=== PATIENT | male | born 1950 | race Caucasian/White ===

== ENCOUNTER 2020-09-23 21:42 | Inpatient (IN) | payer MEDICARE, MEDICAID ==
[~2020-09-23] VITALS: Ht 154.9 cm; Wt 68.0 kg
--- NOTE | 2020-09-23 21:54 | Emergency Room Report ---
History of Present Illness General Chief Complaint: Syncope Source: Patient Present Illness HPI This is a 70-year-old male with no known medical problem. He presents with generalized weakness and near syncope. He said he has been feeling well for last few days. He has chills and decreased appetite. His only been drinking water at home. Is been laying in bed. He went to [employer] to get something to eat today. He was in line when he felt lightheaded and felt occasional pass out. Bystander laid him down to the ground. 911 was called. Paramedics said that his initial blood pressure was systolic in the 80s sitting up. When the laying down is 130 systolic. Patient denies any chest pain. No focal deficit. Denies any fever. He does have chronic edema to his lower extr emity. He denies any cough or congestion. Denies any nausea vomiting or diarrhea. Allergies: Coded Allergies: No Known Allergies (Unverified , 09/23/20) COVID-19 Screening Contact w/high risk pt: No Experienced COVID-19 symptoms?: Yes COVID-19 Testing performed ENERGY ADVISOR: No Patient History Past Medical History: see triage record, old chart reviewed Past Surgical History: none Pertinent Family History: none Social History: Denies: smoking Immunizations: other Reviewed Nursing Documentation: PMH: Agreed; PSxH: Agreed Nursing Documentation-PMH Past Medical History: No Stated History Review of Systems Constitutional: Reports: chills, malaise, weakness Eye: Denies: eye pain, blurred vision ENT: Denies: ear pain, nose congestion, throat swelling Respiratory: Denies: cough, shortness of breath Cardiovascular: Denies: chest pain, palpitations Gastrointestinal: Denies: abdominal pain, diarrhea, nausea, vomiting Musculoskeletal: Denies: back pain, joint pain Skin: Denies: rash Neurological: Denies: headache, numbness Endocrine: Denies: increased thirst, increased urine Hematologic/Lymphatic: Denies: easy bruising All Other Systems: negative except mentioned in HPI Physical Exam Vital Signs Date Time Temp Pulse Resp B/P (MAP) Pulse Ox O2 Delivery O2 Flow Rate FiO2 09/23/20 21:45 98.1 90 18 130/90 (103) 100 Room Air Vitals normal Sp02 EP Interpretation: reviewed, normal General Appearance: well appearing, no apparent distress, alert Head: normocephalic, atraumatic Eyes: bilateral eye PERRL, bilateral eye EOMI ENT: hearing grossly normal, normal pharynx Neck: full range of motion, supple, no meningismus Respiratory: chest non-tender, lungs clear, normal breath sounds Cardiovascular #1: regular rate, rhythm, no murmur Gastrointestinal: normal bowel sounds, non tender, no mass, no organomegaly, no bruit, non-distended Musculoskeletal: back normal, normal range of motion, gait/station normal, other - Lower extremities with 2+ edema. He also has erythema from skin tear. Left leg is warmer than the right. Also with erythema from the mid tib-fib area to the ankle. Psychiatric: mood/affect normal Medical Decision Making Diagnostic Impression: Primary Impression: Near syncope Additional Impressions: Generalized weakness Cellulitis Qualified Codes: L03.115 - Cellulitis of right lower limb Dehydration ER Course Patient presents with generalized weakness and near syncope. He initially was transiently hypotensive. Has been fine here. He felt better after IV fluid. Laboratory data is unremarkable. EKG is unremarkable. The lower extremity appear to have some mild cellulitis. Antibiotics given. Covid test sent. Will admit patient for further work-up and monitoring. I discussed the case with Dr. Ochoa. EKG Diagnostic Results Troponin ordered: Yes Rate: normal Rhythm: NSR ST Segments: no acute changes Rhythm Strip Diag. Results EP Interpretation: yes Rate: 95 Rhythm: NSR, no PVC's, no ectopy Chest X-Ray Diagnostic Results Chest X-Ray Diagnostic Results : Chest X-Ray Ordered: Yes # of Views/Limited/Complete: 1 View Indication: Chest Pain EP Interpretation: Yes Interpretation: no consolidation, no effusion, no pneumothorax, no acute cardiopulmonary disease Impression: No acute disease Electronically Signed by: Constantine Roman MD Last Vital Signs Date Time Temp Pulse Resp B/P (MAP) Pulse Ox O2 Delivery O2 Flow Rate FiO2 09/23/20 21:45 98.1 90 18 130/90 (103) 100 Room Air Status: improved Disposition: ADMITTED INPATIENT Condition: Serious Scripts No Active Prescriptions or Reported Meds Constantine Roman MD Sep 23, 2020 21:54
[2020-09-23] MEDS ORDERED: cefTRIAXone 1 GM in NS 55 ML IVPB ONE (22:00)
[2020-09-23] MEDS ORDERED: Acetaminophen 500mg (ES) tab ORAL ONE (22:00)
--- NOTE | 2020-09-23 22:00 | NUR ---
ED Nurse Note: Pt brought in by EMS after near syncopal episode at grocery store. Pt reports he has been feeling weak and unwell x1 week. Pt c/o left hand pain, reports cough is chronic. Pt AAO x4. IV started, blood and swabs sent to lab, blankets provided.
[2020-09-23 22:20] VITALS: BP 162/91
[2020-09-23 22:24] LABS: BASOPHILS % (AUTO) 1.1 % (0.0-2.0); EOSINOPHILS % (AUTO) 2.4 % (0.0-3.0); HEMOGLOBIN 11.8 G/DL (14.2-18.0); LYMPHOCYTES % (AUTO) 9.5 % (20.0-45.0); MEAN CORPUSCULAR VOLUME 84 FL (80-99); MONOCYTES % (AUTO) 6.7 % (1.0-10.0); NEUTROPHILS % (AUTO) 80.3 % (45.0-75.0); PLATELET COUNT 331 K/UL (150-450); RED BLOOD COUNT 4.66 M/UL (4.70-6.10); RED CELL DISTRIBUTION WIDTH 13.9 % (11.6-14.8); WHITE BLOOD COUNT 11.6 K/UL (4.8-10.8)
[2020-09-23 22:33] LABS: ANION GAP 11 mmol/L (5-15); BLOOD UREA NITROGEN 11 mg/dL (7-18); CALCIUM 8.9 MG/DL (8.5-10.1); CARBON DIOXIDE 26 MMOL/L (21-32); CHLORIDE 105 MMOL/L (98-107); CREATININE 0.9 MG/DL (0.55-1.30); POTASSIUM 3.8 MMOL/L (3.5-5.1); SODIUM 142 MMOL/L (136-145)
[2020-09-23 22:45] LABS: ALANINE AMINOTRANSFERASE 21 U/L (12-78); ALBUMIN 3.7 G/DL (3.4-5.0); ALBUMIN/GLOBULIN RATIO 0.9 (1.0-2.7); ALKALINE PHOSPHATASE 100 U/L (46-116); ASPARTATE AMINO TRANSFERASE 27 U/L (15-37); BILIRUBIN,TOTAL 0.5 MG/DL (0.2-1.0); CKMB 7.4 NG/ML (0.0-3.6); CREATINE KINASE 375 U/L (26-308)
[2020-09-23 23:07] VITALS: BP 179/91
--- NOTE | 2020-09-23 23:08 | NUR ---
ED Nurse Note: Pt is sleeping, no new needs identified. Urine sent to lab.
[2020-09-23 23:10] LABS: APPEARANCE,URINE CLEAR; BILIRUBIN, URINE NEGATIVE (NEGATIVE); COLOR,URINE PALE YELLOW; GLUCOSE, URINE (UA) NEGATIVE (NEGATIVE); KETONES,URINE 3+ (NEGATIVE); LEUKOCYTE ESTERASE ,URINE NEGATIVE (NEGATIVE); NITRITE,URINE NEGATIVE (NEGATIVE); PH,URINE 7 (4.5-8.0); PROTEIN,URINE NEGATIVE (NEGATIVE); UROBILINOGEN,URINE NORMAL MG/DL (0.0-1.0)
[2020-09-24] VITALS (8 sets, daily range): BP systolic 130–167; BP diastolic 72–90
--- NOTE | 2020-09-24 00:19 | NUR ---
ED Nurse Note: Pt is resting. No new needs identified at this time.
--- NOTE | 2020-09-24 00:30 | NUR ---
NURSE NOTES: Receive a report from GIFTY Oglesby from ED.
--- NOTE | 2020-09-24 00:53 | NUR ---
TRANSFER TO FLOOR: Patient transferred to [facility] as ordered, per Dr. Roman. Report given to GIFTY Napier. Belongings sent with pt to floor. Belongings inventory filled out and signed.
--- NOTE | 2020-09-24 00:55 | NUR ---
NURSE NOTES: Pt admitted from ED via gurney accompanied by RN. Awake and alert. No acute distress noted. Still noted mild dizziness. No respiratory distress noted. Skin intact except bilateral L/E redness and swelling and left hand as well. Pt says redness and swelling on L/E have been two years. Denies pain. Pt has been walking until recent symptoms of dizziness. Kept elevated with pillows. Given unit orientation. Provide fall precautions. Done belongings list. Had 4 pocket knives and explain to pt to take away in the room for the safety. CA made aware. Kept in the nuclear equipment design engineer the nursing station. IV H/L is right FA 20G intact. Call light within reach. Will continue to monitor.
--- NOTE | 2020-09-24 01:45 | NUR ---
NURSE NOTES: Left a message to Dr. Ochoa for admission orders.
--- NOTE | 2020-09-24 02:30 | NUR ---
NURSE NOTES: Left a follow-up message to Dr. Ochoa for admission orders.
--- NOTE | 2020-09-24 05:40 | NUR ---
NURSE NOTES: Receive admission orders from Dr. Ochoa. Read back orders. Order noted and carried out.
[2020-09-24] MEDS ORDERED: Zolpidem 5mg tab ORAL PRN (05:45)
[2020-09-24] MEDS ORDERED: HYDROcodone/Acetamin 5/325 tab ORAL PRN (05:45)
[2020-09-24] MEDS: D5 1/2NS w/KCl 20mEq 1,000 ML IV SCH ×2 (06:30→20:20)
--- NOTE | 2020-09-24 06:30 | NUR ---
NURSE NOTES: Update pt for today's plans.
--- NOTE | 2020-09-24 06:47 | NUR ---
NURSE HAND-OFF REPORT: Important Events on Shift: new admission, high BP, SR-ST, L/E bilateral swelling and redness, left hand redness Patient Status: [stable] Diet: [cardiac] Pending Orders: [Xray-left hand, Venous dulpex, 2D-echo] Pending Results/Labs:[cbc, troponin] Pending MD notification:[] Latest Vital Signs: Temperature 98.9 , Pulse 98 , B/P 154 /90 , Respiratory Rate 18 , O2 SAT 97 , Room Air, O2 Flow Rate . Vital Sign Comment: [] EKG Rhythm: Sinus Rhythm Rhythm change?: N MD Notified?: - MD Response: Latest Avila Fall Score: 30 Fall Risk: Medium Risk Safety Measures: Call light Within Reach, Bed Alarm , Side Rails Side Rails x2, Bed position Low and Locked. Fall Precautions: Patient Fall Education
--- NOTE | 2020-09-24 07:30 | NUR ---
NURSE NOTES: Given report to GIFTY Mathew.
[2020-09-24 07:31] LABS: BASOPHILS % (AUTO) 0.9 % (0.0-2.0); EOSINOPHILS % (AUTO) 1.2 % (0.0-3.0); HEMATOCRIT 37.3 % (42.0-52.0); HEMOGLOBIN 11.6 G/DL (14.2-18.0); LYMPHOCYTES % (AUTO) 11.3 % (20.0-45.0); MEAN CORPUSCULAR VOLUME 81 FL (80-99); MONOCYTES % (AUTO) 10.7 % (1.0-10.0); NEUTROPHILS % (AUTO) 75.8 % (45.0-75.0); PLATELET COUNT 328 K/UL (150-450); RED BLOOD COUNT 4.62 M/UL (4.70-6.10); RED CELL DISTRIBUTION WIDTH 13.8 % (11.6-14.8); WHITE BLOOD COUNT 9.1 K/UL (4.8-10.8)
--- NOTE | 2020-09-24 07:35 | NUR ---
NURSE NOTES: Patient received from o RN. Patient awake alert and oriented x 4. No c/o pain, no s/s of repiratory distress, breathing even and unlabored. Saturating WNL on room gutierrez. IV site patent intact, no redness, no erythema noted. Bed in lowest position and locked. Call light and bedside table within reach.
--- NOTE | 2020-09-24 08:06 | NUR ---
CASE MANAGEMENT:REVIEW 70 YR OLD MALE BIBA FROM STORE SI: NEAR SYNCOPE. LLE CELLULITIS. DEHYDRATION 98.1 110 18 130/90 100% ON RA WBC+11.6 TCK+375 D-DIMER+0.90 IS: 1L NS BOLUS IV ROCEPHIN TYLENOL CHEST XRAY NOVEL COVID BLOOD CX : TO TELEMETRY UNIT DCP: FROM HOME
--- NOTE | 2020-09-24 08:08 | Consultation ---
History of Present Illness General Date patient seen: Sep 24, 2020 Time patient seen: 12:59 Chief Complaint: Syncope Referring physician: Dr. Ochoa Reason for Consultation: R/o infection Present Illness HPI 70yo M w/ no known PMH who p/w near syncope while at the supermarket. ID c/s to eval for infection. 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 Went to the store for something to eat, felt lightheaded in line and felt like he was going to pass out. Bystanders layed him on the ground and called 911. Per EMS, BP was initially in 80s sitting up and 130s laying down. Pt is very poor historian, denies any recent illness. Denies any fevers but does endorse prior chills. No CP, abd pain, dysuria, rashes. Does have mild cough he says, no SOB. Main complaint is L hand swelling and severe pain w/ any movement, doesn't know how this happened. Denies any allergies to abx Allergies: Coded Allergies: No Known Allergies (Unverified , 09/23/20) Medication History No Active Prescriptions or Reported Meds Patient History Healthcare decision maker Resuscitation status Advanced Directive on File Review of Systems ROS Narrative 10-point ROS neg except as noted in HPI Physical Exam Physical Exam Narrative Gen: NAD HEENT: NCAT Pulm: BL chest rise on RA Abd: Soft, NTND Ext: No c/c. L hand w/ diffuse swelling, mild erythema, no increased warmth; severe pain w/ any movement of R hand Skin: No visible rashes Neuro: Awake, interactive Last 24 Hour Vital Signs Date Time Temp Pulse Resp B/P (MAP) Pulse Ox O2 Delivery O2 Flow Rate FiO2 09/24/20 07:43 98.8 97 20 150/89 (109) 96 09/24/20 06:00 100 103 112 09/24/20 04:30 98.9 98 18 154/90 (111) 97 09/24/20 04:00 69 09/24/20 01:00 99.0 92 18 147/82 (103) 97 09/24/20 01:00 Room Air 09/24/20 00:42 98.6 95 14 160/83 100 Room Air 09/24/20 00:42 98.6 95 14 160/83 100 09/24/20 00:18 98.6 77 14 167/76 97 Room Air 09/23/20 23:07 98.6 110 20 179/91 98 Room Air 09/23/20 23:06 98.6 09/23/20 22:20 99.1 94 18 162/91 100 Room Air 09/23/20 21:45 98.1 90 18 130/90 (103) 100 Room Air Intake and Output 09/23/20 09/24/20 19:00 07:00 Intake Total 1150 ml Output Total 1350 ml Balance -200 ml Intake Oral 100 ml IV Total 1050 ml Output Urine Total 1350 ml # Voids 4 Laboratory Tests Test 09/23/20 21:56 09/23/20 23:05 09/24/20 06:35 White Blood Count 11.6 K/UL (4.8-10.8) H 9.1 K/UL (4.8-10.8) Red Blood Count 4.66 M/UL (4.70-6.10) L 4.62 M/UL (4.70-6.10) L Hemoglobin 11.8 G/DL (14.2-18.0) L 11.6 G/DL (14.2-18.0) L Hematocrit 39.0 % (42.0-52.0) L 37.3 % (42.0-52.0) L Mean Corpuscular Volume 84 FL (80-99) 81 FL (80-99) Mean Corpuscular Hemoglobin 25.2 PG (27.0-31.0) L 25.2 PG (27.0-31.0) L Mean Corpuscular Hemoglobin Concent 30.2 G/DL (32.0-36.0) L 31.2 G/DL (32.0-36.0) L Red Cell Distribution Width 13.9 % (11.6-14.8) 13.8 % (11.6-14.8) Platelet Count 331 K/UL (150-450) 328 K/UL (150-450) Mean Platelet Volume 9.2 FL (6.5-10.1) 9.8 FL (6.5-10.1) Neutrophils (%) (Auto) 80.3 % (45.0-75.0) H 75.8 % (45.0-75.0) H Lymphocytes (%) (Auto) 9.5 % (20.0-45.0) L 11.3 % (20.0-45.0) L Monocytes (%) (Auto) 6.7 % (1.0-10.0) 10.7 % (1.0-10.0) H Eosinophils (%) (Auto) 2.4 % (0.0-3.0) 1.2 % (0.0-3.0) Basophils (%) (Auto) 1.1 % (0.0-2.0) 0.9 % (0.0-2.0) Prothrombin Time 11.0 SEC (9.30-11.50) Prothromb Time International Ratio 1.0 (0.9-1.1) Activated Partial Thromboplast Time 26 SEC (23-33) D-Dimer 0.90 mg/L FEU (0.00-0.49) H Sodium Level 142 MMOL/L (136-145) Potassium Level 3.8 MMOL/L (3.5-5.1) Chloride Level 105 MMOL/L (98-107) Carbon Dioxide Level 26 MMOL/L (21-32) Anion Gap 11 mmol/L (5-15) Blood Urea Nitrogen 11 mg/dL (7-18) Creatinine 0.9 MG/DL (0.55-1.30) Estimat Glomerular Filtration Rate > 60 mL/min (>60) Glucose Level 104 MG/DL (74-106) Lactic Acid Level 1.50 mmol/L (0.4-2.0) Calcium Level 8.9 MG/DL (8.5-10.1) Total Bilirubin 0.5 MG/DL (0.2-1.0) Aspartate Amino Transf (AST/SGOT) 27 U/L (15-37) Alanine Aminotransferase (ALT/SGPT) 21 U/L (12-78) Alkaline Phosphatase 100 U/L (46-116) Total Creatine Kinase 375 U/L (26-308) H Creatine Kinase MB 7.4 NG/ML (0.0-3.6) H Creatine Kinase MB Relative Index 1.9 Troponin I 0.000 ng/mL (0.000-0.056) 0.007 ng/mL (0.000-0.056) C-Reactive Protein, Quantitative 0.9 mg/dL (0.00-0.90) Pro-B-Type Natriuretic Peptide 196 pg/mL (0-125) H Total Protein 7.6 G/DL (6.4-8.2) Albumin 3.7 G/DL (3.4-5.0) Globulin 3.9 g/dL Albumin/Globulin Ratio 0.9 (1.0-2.7) L Urine Color Pale yellow Urine Appearance Clear Urine pH 7 (4.5-8.0) Urine Specific [place] 1.010 (1.005-1.035) Urine Protein Negative (NEGATIVE) Urine Glucose (UA) Negative (NEGATIVE) Urine Ketones 3+ (NEGATIVE) H Urine Blood Negative (NEGATIVE) Urine Nitrite Negative (NEGATIVE) Urine Bilirubin Negative (NEGATIVE) Urine Urobilinogen Normal MG/DL (0.0-1.0) Urine Leukocyte Esterase Negative (NEGATIVE) Microbiology Date/Time Source Procedure Growth Status 09/23/20 22:15 Nasal Nares - Final Complete 09/23/20 22:15 Nasal Nares - Final Complete Height (Feet): 5 Height (Inches): 1.00 Weight (Pounds): 150 Medications Current Medications Medications (Trade) Dose Ordered Sig/Anthony Route PRN Reason Start Time Stop Time Status Last Admin Dose Admin Acetaminophen (Tylenol) 650 mg Q6H PRN ORAL FEVER 09/24/20 05:45 10/24/20 05:44 Acetaminophen (Tylenol) 650 mg Q6H PRN ORAL Mild Pain (Pain Scale 1-3) 09/24/20 05:45 10/24/20 05:44 Acetaminophen/ Hydrocodone Bitart ([place] 5/325) 1 tab Q6H PRN ORAL moderate to severer pain 09/24/20 05:45 10/01/20 05:44 Ceftriaxone Sodium 1 gm/ Dextrose 55 ml @ 110 mls/hr Q24H IVPB 09/24/20 22:00 10/01/20 21:59 Dextrose/ Electrolytes 1,000 ml @ 75 mls/hr [id number] IV 09/24/20 07:00 10/24/20 06:59 09/24/20 06:30 Heparin Sodium (Porcine) (Heparin 5000 units/ml) 5,000 units EVERY 12 HOURS SUBQ 09/24/20 09:00 11/08/20 08:59 Ondansetron HCl (Zofran) 4 mg Q4H PRN IVP Nausea & Vomiting 09/24/20 05:45 10/24/20 05:44 Vancomycin HCl 250 ml @ 166.667 mls/hr Q24H IVPB 09/24/20 09:00 09/29/20 08:59 Vancomycin HCl (Vanco pharmacy to dose) 1 ea DAILY PRN MISC Per rx protocol 09/24/20 05:45 10/24/20 05:44 Zolpidem Tartrate (Ambien) 5 mg HSPRN PRN ORAL Insomnia 09/24/20 05:45 10/01/20 05:44 Assessment/Plan Assessment/Plan: 70yo M with: Afebrile Mild leukocytosis to 11, improved Near syncopal event, weakness R/o COVID Satting well on RA 09/23 COVID PCR p BCx p CXR p Flu neg L hand swelling, r/o cellulitis 09/23 L hand XR p US p Cr 0.9 Plan: Cont empiric vanco/CTX #2 for now HIV screen F/u COVID PCR, BCx, CXR F/u XR and US of L hand Trend L hand swelling/erythema Monitor CBC/CMP Monitor temp curve, hemodynamics Monitor resp status D/w RN Thank you for this consult. [facility] will continue to follow. Jayda Staton M.D. Sep 24, 2020 08:08
[2020-09-24] MEDS ORDERED: Vancomycin 1gm/D5W 275ml IVPB SCH ×2 (09:00)
[2020-09-24] MEDS: Vancomycin 1.25gm/250ml Premix IVPB SCH (09:17)
[2020-09-24] MEDS: Heparin 5000 units/ml inj SUBQ SCH ×2 (09:20→21:25)
--- NOTE | 2020-09-24 11:32 | History & Physical ---
History and Physical History & Physicial Devin Ochoa MD Sep 24, 2020 11:32
--- NOTE | 2020-09-24 12:47 | Consultation ---
History of Present Illness General Date patient seen: Sep 24, 2020 Reason for Hospitalization: Syncope Present Illness HPI 70-year-old male with no known medical problem. He presents with generalized weakness and near syncope. He said he has been feeling well for last few days. He has chills and decreased appetite. His only been drinking water at home. Is been laying in bed. He went to [employer] to get something to eat today. He was in line when he felt lightheaded and felt occasional pass out. Bystander laid him down to the ground. 911 was called. Paramedics said that his initial blood pressure was systolic in the 80s sitting up. When the laying down is 130 systolic. Patient denies any chest pain. No focal deficit. Denies any fever. He does have chronic edema to his lower extremity. He denies any cough or congestion. Denies any nausea vomiting or diarrhea. noted to have bilateral lower extremity cellulitis. surgery called to evaluate and assist with care. Allergies: Coded Allergies: No Known Allergies (Unverified , 09/23/20) COVID-19 Screening Contact w/high risk pt: No Experienced COVID-19 symptoms?: No Coronavirus symptoms experienc: Fatigue Medication History No Active Prescriptions or Reported Meds Patient History Limited by: medical condition History Provided By: Patient, Medical Record, PMD Healthcare decision maker Resuscitation status Advanced Directive on File Past Medical/Surgical History Past Medical/Surgical History: (1) Generalized weakness (2) Dehydration (3) Cellulitis (4) Near syncope Review of Systems Review of Symptoms General ROS: no weight loss or fever Psychological ROS: no depression or mood changes, no memory loss Ophthalmic ROS: no visual changes or eye irritation ENT ROS: no nasal congestion, hearing loss, dizziness Allergy and Immunology ROS: no allergic symptoms or urticaria Hematological and Lymphatic ROS: no swollen glands, unusual bleeding or bruising Endocrine ROS: no polyuria, polydipsia, weight changes, temperature intolerance Respiratory ROS: no cough, shortness of breath, or wheezing Cardiovascular ROS: no chest pain or dyspnea on exertion Gastrointestinal ROS: denies abdominal pain, bright red blood in stool. Musculoskeletal ROS: no myalgias or arthralgias Neurological ROS: no TIA or stroke symptoms Dermatological ROS: no new or changing skin lesions, rashes or pruritis Physical Exam Physical Exam General appearance: alert, cooperative, no distress, appears stated age Head: Normocephalic, without obvious abnormality, atraumatic Eyes: conjunctivae/corneas clear. PERRL, EOM's intact. Fundi benign Throat: Lips, mucosa, and tongue normal. Teeth and gums normal Neck: supple, symmetrical, trachea midline, no adenopathy, thyroid: not enlarged, symmetric, no tenderness/mass/nodules, no carotid bruit and no JVD Lungs: clear to auscultation bilaterally Heart: regular rate and rhythm, S1, S2 normal, no murmur, click, rub or gallop Abdomen: soft, non-tender. Bowel sounds normal. No masses, no organomegaly Extremities: extremities b/l le cellulitis with edema Pulses: 2+ and symmetric Skin: Skin color, texture, turgor normal. No rashes or lesions Neurologic: Grossly normal Last 24 Hour Vital Signs Date Time Temp Pulse Resp B/P (MAP) Pulse Ox O2 Delivery O2 Flow Rate FiO2 09/24/20 12:00 98.4 100 20 148/80 (102) 95 09/24/20 09:00 Room Air 09/24/20 08:00 114 09/24/20 07:43 98.8 97 20 150/89 (109) 96 09/24/20 06:00 100 103 112 09/24/20 04:30 98.9 98 18 154/90 (111) 97 09/24/20 04:00 69 09/24/20 01:00 99.0 92 18 147/82 (103) 97 09/24/20 01:00 Room Air 09/24/20 00:42 98.6 95 14 160/83 100 Room Air 09/24/20 00:42 98.6 95 14 160/83 100 09/24/20 00:18 98.6 77 14 167/76 97 Room Air 09/23/20 23:07 98.6 110 20 179/91 98 Room Air 09/23/20 23:06 98.6 09/23/20 22:20 99.1 94 18 162/91 100 Room Air 09/23/20 21:45 98.1 90 18 130/90 (103) 100 Room Air Intake and Output 09/23/20 09/24/20 19:00 07:00 Intake Total 1150 ml Output Total 1350 ml Balance -200 ml Intake Oral 100 ml IV Total 1050 ml Output Urine Total 1350 ml # Voids 4 Laboratory Tests Test 09/23/20 21:56 09/23/20 23:05 09/24/20 06:35 White Blood Count 11.6 K/UL (4.8-10.8) H 9.1 K/UL (4.8-10.8) Red Blood Count 4.66 M/UL (4.70-6.10) L 4.62 M/UL (4.70-6.10) L Hemoglobin 11.8 G/DL (14.2-18.0) L 11.6 G/DL (14.2-18.0) L Hematocrit 39.0 % (42.0-52.0) L 37.3 % (42.0-52.0) L Mean Corpuscular Volume 84 FL (80-99) 81 FL (80-99) Mean Corpuscular Hemoglobin 25.2 PG (27.0-31.0) L 25.2 PG (27.0-31.0) L Mean Corpuscular Hemoglobin Concent 30.2 G/DL (32.0-36.0) L 31.2 G/DL (32.0-36.0) L Red Cell Distribution Width 13.9 % (11.6-14.8) 13.8 % (11.6-14.8) Platelet Count 331 K/UL (150-450) 328 K/UL (150-450) Mean Platelet Volume 9.2 FL (6.5-10.1) 9.8 FL (6.5-10.1) Neutrophils (%) (Auto) 80.3 % (45.0-75.0) H 75.8 % (45.0-75.0) H Lymphocytes (%) (Auto) 9.5 % (20.0-45.0) L 11.3 % (20.0-45.0) L Monocytes (%) (Auto) 6.7 % (1.0-10.0) 10.7 % (1.0-10.0) H Eosinophils (%) (Auto) 2.4 % (0.0-3.0) 1.2 % (0.0-3.0) Basophils (%) (Auto) 1.1 % (0.0-2.0) 0.9 % (0.0-2.0) Prothrombin Time 11.0 SEC (9.30-11.50) Prothromb Time International Ratio 1.0 (0.9-1.1) Activated Partial Thromboplast Time 26 SEC (23-33) D-Dimer 0.90 mg/L FEU (0.00-0.49) H Sodium Level 142 MMOL/L (136-145) Potassium Level 3.8 MMOL/L (3.5-5.1) Chloride Level 105 MMOL/L (98-107) Carbon Dioxide Level 26 MMOL/L (21-32) Anion Gap 11 mmol/L (5-15) Blood Urea Nitrogen 11 mg/dL (7-18) Creatinine 0.9 MG/DL (0.55-1.30) Estimat Glomerular Filtration Rate > 60 mL/min (>60) Glucose Level 104 MG/DL (74-106) Lactic Acid Level 1.50 mmol/L (0.4-2.0) Calcium Level 8.9 MG/DL (8.5-10.1) Total Bilirubin 0.5 MG/DL (0.2-1.0) Aspartate Amino Transf (AST/SGOT) 27 U/L (15-37) Alanine Aminotransferase (ALT/SGPT) 21 U/L (12-78) Alkaline Phosphatase 100 U/L (46-116) Total Creatine Kinase 375 U/L (26-308) H Creatine Kinase MB 7.4 NG/ML (0.0-3.6) H Creatine Kinase MB Relative Index 1.9 Troponin I 0.000 ng/mL (0.000-0.056) 0.007 ng/mL (0.000-0.056) C-Reactive Protein, Quantitative 0.9 mg/dL (0.00-0.90) Pro-B-Type Natriuretic Peptide 196 pg/mL (0-125) H Total Protein 7.6 G/DL (6.4-8.2) Albumin 3.7 G/DL (3.4-5.0) Globulin 3.9 g/dL Albumin/Globulin Ratio 0.9 (1.0-2.7) L Urine Color Pale yellow Urine Appearance Clear Urine pH 7 (4.5-8.0) Urine Specific [place] 1.010 (1.005-1.035) Urine Protein Negative (NEGATIVE) Urine Glucose (UA) Negative (NEGATIVE) Urine Ketones 3+ (NEGATIVE) H Urine Blood Negative (NEGATIVE) Urine Nitrite Negative (NEGATIVE) Urine Bilirubin Negative (NEGATIVE) Urine Urobilinogen Normal MG/DL (0.0-1.0) Urine Leukocyte Esterase Negative (NEGATIVE) HIV (1&2) Antibody Rapid Pending Microbiology Date/Time Source Procedure Growth Status 09/23/20 22:15 Nasal Nares - Final Complete 09/23/20 22:15 Nasal Nares - Final Complete Height (Feet): 5 Height (Inches): 1.00 Weight (Pounds): 150 Medications Current Medications Medications (Trade) Dose Ordered Sig/Anthony Route PRN Reason Start Time Stop Time Status Last Admin Dose Admin Acetaminophen (Tylenol) 650 mg Q6H PRN ORAL FEVER 09/24/20 05:45 10/24/20 05:44 Acetaminophen (Tylenol) 650 mg Q6H PRN ORAL Mild Pain (Pain Scale 1-3) 09/24/20 05:45 10/24/20 05:44 Acetaminophen/ Hydrocodone Bitart ([place] 5/325) 1 tab Q6H PRN ORAL moderate to severer pain 09/24/20 05:45 10/01/20 05:44 Ceftriaxone Sodium 1 gm/ Dextrose 55 ml @ 110 mls/hr Q24H IVPB 09/24/20 22:00 10/01/20 21:59 Dextrose/ Electrolytes 1,000 ml @ 75 mls/hr [id number] IV 09/24/20 07:00 10/24/20 06:59 09/24/20 06:30 Heparin Sodium (Porcine) (Heparin 5000 units/ml) 5,000 units EVERY 12 HOURS SUBQ 09/24/20 09:00 11/08/20 08:59 09/24/20 09:20 Ondansetron HCl (Zofran) 4 mg Q4H PRN IVP Nausea & Vomiting 09/24/20 05:45 10/24/20 05:44 Vancomycin HCl 250 ml @ 166.667 mls/hr Q24H IVPB 09/24/20 09:00 09/29/20 08:59 09/24/20 09:17 Vancomycin HCl (Vanco pharmacy to dose) 1 ea DAILY PRN MISC Per rx protocol 09/24/20 05:45 10/24/20 05:44 Zolpidem Tartrate (Ambien) 5 mg HSPRN PRN ORAL Insomnia 09/24/20 05:45 10/01/20 05:44 Assessment/Plan Problem List: (1) Generalized weakness ICD Codes: R53.1 - Weakness SNOMED: 96164180 (2) Dehydration ICD Codes: E86.0 - Dehydration SNOMED: 44674449 (3) Cellulitis Assessment & Plan: 6-year-old male with right lower extremity cellulitis. Multiple scabs identified. Patient denies trauma states he does occasionally have itching from the edema and scratches in the recent is formed erythema and cellulitis. No nausea vomiting fever chills. Labs noted. Keep right leg elevated IV antibiotics no abscess identified no acute surgical intervention planned or necessary at this time. Will monitor to ensure resolution of cellulitis. Local wound care. Diet as tolerated we will follow with recommendations thank you for let allowing me to participate in patient's care ICD Codes: L03.90 - Cellulitis, unspecified SNOMED: 515600721 Qualifiers: Qualified Codes: L03.115 - Cellulitis of right lower limb (4) Near syncope ICD Codes: R55 - Syncope and collapse SNOMED: 652267205 Carlton Williamson Sep 24, 2020 12:47
--- NOTE | 2020-09-24 12:54 | Cardiac Electrophysiology PN ---
Subjective Subjective [id number] Objective Last 24 Hour Vital Signs Date Time Temp Pulse Resp B/P (MAP) Pulse Ox O2 Delivery O2 Flow Rate FiO2 09/24/20 12:00 98.4 100 20 148/80 (102) 95 09/24/20 09:00 Room Air 09/24/20 08:00 114 09/24/20 07:43 98.8 97 20 150/89 (109) 96 09/24/20 06:00 100 103 112 09/24/20 04:30 98.9 98 18 154/90 (111) 97 09/24/20 04:00 69 09/24/20 01:00 99.0 92 18 147/82 (103) 97 09/24/20 01:00 Room Air 09/24/20 00:42 98.6 95 14 160/83 100 Room Air 09/24/20 00:42 98.6 95 14 160/83 100 09/24/20 00:18 98.6 77 14 167/76 97 Room Air 09/23/20 23:07 98.6 110 20 179/91 98 Room Air 09/23/20 23:06 98.6 09/23/20 22:20 99.1 94 18 162/91 100 Room Air 09/23/20 21:45 98.1 90 18 130/90 (103) 100 Room Air Intake and Output 09/23/20 09/24/20 19:00 07:00 Intake Total 1150 ml Output Total 1350 ml Balance -200 ml Intake Oral 100 ml IV Total 1050 ml Output Urine Total 1350 ml # Voids 4 Laboratory Tests Test 09/23/20 21:56 09/23/20 23:05 09/24/20 06:35 White Blood Count 11.6 K/UL (4.8-10.8) H 9.1 K/UL (4.8-10.8) Red Blood Count 4.66 M/UL (4.70-6.10) L 4.62 M/UL (4.70-6.10) L Hemoglobin 11.8 G/DL (14.2-18.0) L 11.6 G/DL (14.2-18.0) L Hematocrit 39.0 % (42.0-52.0) L 37.3 % (42.0-52.0) L Mean Corpuscular Volume 84 FL (80-99) 81 FL (80-99) Mean Corpuscular Hemoglobin 25.2 PG (27.0-31.0) L 25.2 PG (27.0-31.0) L Mean Corpuscular Hemoglobin Concent 30.2 G/DL (32.0-36.0) L 31.2 G/DL (32.0-36.0) L Red Cell Distribution Width 13.9 % (11.6-14.8) 13.8 % (11.6-14.8) Platelet Count 331 K/UL (150-450) 328 K/UL (150-450) Mean Platelet Volume 9.2 FL (6.5-10.1) 9.8 FL (6.5-10.1) Neutrophils (%) (Auto) 80.3 % (45.0-75.0) H 75.8 % (45.0-75.0) H Lymphocytes (%) (Auto) 9.5 % (20.0-45.0) L 11.3 % (20.0-45.0) L Monocytes (%) (Auto) 6.7 % (1.0-10.0) 10.7 % (1.0-10.0) H Eosinophils (%) (Auto) 2.4 % (0.0-3.0) 1.2 % (0.0-3.0) Basophils (%) (Auto) 1.1 % (0.0-2.0) 0.9 % (0.0-2.0) Prothrombin Time 11.0 SEC (9.30-11.50) Prothromb Time International Ratio 1.0 (0.9-1.1) Activated Partial Thromboplast Time 26 SEC (23-33) D-Dimer 0.90 mg/L FEU (0.00-0.49) H Sodium Level 142 MMOL/L (136-145) Potassium Level 3.8 MMOL/L (3.5-5.1) Chloride Level 105 MMOL/L (98-107) Carbon Dioxide Level 26 MMOL/L (21-32) Anion Gap 11 mmol/L (5-15) Blood Urea Nitrogen 11 mg/dL (7-18) Creatinine 0.9 MG/DL (0.55-1.30) Estimat Glomerular Filtration Rate > 60 mL/min (>60) Glucose Level 104 MG/DL (74-106) Lactic Acid Level 1.50 mmol/L (0.4-2.0) Calcium Level 8.9 MG/DL (8.5-10.1) Total Bilirubin 0.5 MG/DL (0.2-1.0) Aspartate Amino Transf (AST/SGOT) 27 U/L (15-37) Alanine Aminotransferase (ALT/SGPT) 21 U/L (12-78) Alkaline Phosphatase 100 U/L (46-116) Total Creatine Kinase 375 U/L (26-308) H Creatine Kinase MB 7.4 NG/ML (0.0-3.6) H Creatine Kinase MB Relative Index 1.9 Troponin I 0.000 ng/mL (0.000-0.056) 0.007 ng/mL (0.000-0.056) C-Reactive Protein, Quantitative 0.9 mg/dL (0.00-0.90) Pro-B-Type Natriuretic Peptide 196 pg/mL (0-125) H Total Protein 7.6 G/DL (6.4-8.2) Albumin 3.7 G/DL (3.4-5.0) Globulin 3.9 g/dL Albumin/Globulin Ratio 0.9 (1.0-2.7) L Urine Color Pale yellow Urine Appearance Clear Urine pH 7 (4.5-8.0) Urine Specific [place] 1.010 (1.005-1.035) Urine Protein Negative (NEGATIVE) Urine Glucose (UA) Negative (NEGATIVE) Urine Ketones 3+ (NEGATIVE) H Urine Blood Negative (NEGATIVE) Urine Nitrite Negative (NEGATIVE) Urine Bilirubin Negative (NEGATIVE) Urine Urobilinogen Normal MG/DL (0.0-1.0) Urine Leukocyte Esterase Negative (NEGATIVE) HIV (1&2) Antibody Rapid Pending Microbiology Date/Time Source Procedure Growth Status 09/23/20 22:15 Nasal Nares - Final Complete 09/23/20 22:15 Nasal Nares - Final Complete Oliver Plata MD Sep 24, 2020 12:54
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
--- NOTE | 2020-09-24 14:49 | NUR ---
INSURANCE CLINICALS/REVIEW FAXED TO [facility]#[phone] fax# [phone]
--- NOTE | 2020-09-24 14:54 | Cardiology Report ---
APPROVED REPORT EXAM: Two-dimensional and M-mode echocardiogram with Doppler and color Doppler. INDICATION Hypertension/HCVD M-Mode DIMENSIONS IVSd0.9 (0.7-1.1cm)Left Atrium (MM)3.9 (1.6-4.0cm) LVDd4.2 (3.5-5.6cm)Aortic Root2.7 (2.0-3.7cm) PWd1.0 (0.7-1.1cm)Aortic Cusp Exc.1.9 (1.5-2.0cm) IVSs1.2 cmEPSS0.6 (>1.0cm) LVDs2.2 (2.5-4.0cm) PWs2.3 cm <Conclusion> Technically difficult study due to poor acoustical windows. Normal left ventricular chamber size, hyperdynamic systolic function and wall motion to extent visualized. Left ventricular ejection fraction estimated to be 70-75 %. No evidence of left ventricular hypertrophy. Anterior Echo-free space, may be due to pericardial fat or effusion. All other cardiac chamber sizes are within normal limits. Focal aortic valve sclerosis with adequate cusp excursion. Thickened mitral valve leaflets with normal excursion. Mitral annulus and aortic root calcification. Pulmonic valve not well visualized. Normal tricuspid valve structure. IVC at normal size with physiologic collapse. A color flow and spectral Doppler study was performed and revealed: Trace to mild aortic regurgitation. Trace mitral regurgitation. Mitral diastolic velocities suggest reduced left ventricular relaxation c/w mild LV diastolic dysfunction (Grade I ). Trace tricuspid regurgitation. Tricuspid systolic velocities suggests peak right ventricular systolic pressure of 19 mmHg.
--- NOTE | 2020-09-24 14:58 | Cardiology Report ---
APPROVED REPORT EKG Measurement Heart [id number] <Conclusion> Sinus tachycardia Otherwise normal ECG
--- NOTE | 2020-09-24 15:09 | Diagnostic Imaging Report ---
Indication: Shortness of breath Technique: One view of the chest Comparison: none Findings: Lungs and pleural spaces are clear. Heart size is normal. Impression: No acute process
--- NOTE | 2020-09-24 15:14 | Diagnostic Imaging Report ---
Indication: Left hand pain Technique: 3 views left hand Comparison: none Findings: There is a 7 mm lucency in the distal radius. There is degenerative narrowing of the radiocarpal joint. There is some subchondral sclerosis on both sides of the joint, and subchondral cysts are seen within the lunate. There is anterior subluxation of the second and third metacarpophalangeal joints. Otherwise normal bony alignment. There are degenerative changes of the first interphalangeal joint. No acute fracture. No dislocation. Impression: No acute bony trauma Cystic lesion in the distal radius, probably benign Degenerative changes, as detailed above
--- NOTE | 2020-09-24 15:17 | Diagnostic Imaging Report ---
Indication: Bilateral extremity edema, pain, and redness Technique: Grayscale and duplex images of the bilateral lower extremity veins Comparison: None Findings: Bilaterally, grayscale and duplex images demonstrate no evidence of intraluminal thrombus. Normal phasic Doppler waveforms, demonstrating normal augmentation response and no evidence of valvular insufficiency. Greater saphenous vein(s) and tibial veins are patent. Normal compressibility. Impression: Negative for evidence of lower extremity deep venous thrombosis bilaterally
--- NOTE | 2020-09-24 17:46 | NUR ---
NURSE HAND-OFF REPORT: Important Events on Shift:[Xray for hand, Venous duplex, and 2decho done today. ] Patient Status: [FC< A&OX4] Diet: [Cardiac Diet] Pending Orders: [] Pending Results/Labs:[] Pending MD notification:[] Latest Vital Signs: Temperature 97.9 , Pulse 93 , B/P 147 /72 , Respiratory Rate 20 , O2 SAT 96 , Room Air, O2 Flow Rate . Vital Sign Comment: [] EKG Rhythm: Sinus Rhythm Rhythm change?: N MD Notified?: - MD Response: Latest Avila Fall Score: 30 Fall Risk: Medium Risk Safety Measures: Call light Within Reach, Bed Alarm Zone 1, Side Rails Side Rails x2, Bed position Low and Locked. Fall Precautions: Yellow Socks Yellow Gown Door Sign Patient Fall Education Report given to []. Addendum: 09/24/20 at 1916 by Priyanka Burgos RN Patient report given to Jass DURBIN
--- NOTE | 2020-09-24 19:50 | NUR ---
NURSE NOTES: Pt received from GIFTY Mathew. Pt is resting comfortably in bed and states pain in BLE relieved by rest and does not request pain medication. Pt is A/Ox4 and ambulatory with steady gait to restroom; ambulation is assisted by nurse due to previous syncopal episodes. Pt has cardiac monitoring ST asymptomatic with MD aware. Pt is breathing unlabored on RA with productive cough and congestion. Pt has RFA 20G running D51/2NS+20mEqKCL 75ml/hr patent with dressing dry and intact. Bed is locked in lowest position with call light within reach. Will continue to monitor.
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
[2020-09-24] MEDS: cefTRIAXone 1 GM in D5W 55 ML IVPB SCH (21:20)
[2020-09-25] VITALS: BP 132/82
[2020-09-25 04:00] VITALS: BP 127/69
[2020-09-25 05:21] LABS: BASOPHILS % (AUTO) 1.8 % (0.0-2.0); EOSINOPHILS % (AUTO) 3.4 % (0.0-3.0); HEMATOCRIT 36.9 % (42.0-52.0); HEMOGLOBIN 11.5 G/DL (14.2-18.0); LYMPHOCYTES % (AUTO) 24.6 % (20.0-45.0); MEAN CORPUSCULAR VOLUME 80 FL (80-99); MONOCYTES % (AUTO) 11.8 % (1.0-10.0); NEUTROPHILS % (AUTO) 58.5 % (45.0-75.0); PLATELET COUNT 339 K/UL (150-450); RED BLOOD COUNT 4.58 M/UL (4.70-6.10); RED CELL DISTRIBUTION WIDTH 13.5 % (11.6-14.8); WHITE BLOOD COUNT 8.2 K/UL (4.8-10.8)
[2020-09-25 06:00] LABS: PHOSPHORUS 2.9 MG/DL (2.5-4.9)
[2020-09-25 06:05] LABS: ANION GAP 11 mmol/L (5-15); BLOOD UREA NITROGEN 8 mg/dL (7-18); CALCIUM 8.9 MG/DL (8.5-10.1); CARBON DIOXIDE 24 MMOL/L (21-32); CHLORIDE 108 MMOL/L (98-107); CREATININE 0.9 MG/DL (0.55-1.30); POTASSIUM 3.7 MMOL/L (3.5-5.1); SODIUM 143 MMOL/L (136-145)
--- NOTE | 2020-09-25 07:26 | NUR ---
NURSE HAND-OFF REPORT: Important Events on Shift:Pt continued scheduled medications Patient Status: Stable Diet: Cardiac Pending Orders: Pending Results/Labs:AM Labs Pending MD notification: Latest Vital Signs: Temperature 97.9 , Pulse 88 , B/P 127 /69 , Respiratory Rate 18 , O2 SAT 99 , Room Air, O2 Flow Rate . Vital Sign Comment: VSS EKG Rhythm: Sinus Rhythm Rhythm change?: N MD Notified?: - MD Response: Latest Avila Fall Score: 45 Fall Risk: High Risk Safety Measures: Call light Within Reach, Bed Alarm Zone 1, Side Rails Side Rails x2, Bed position Low and Locked. Fall Precautions: Yellow Socks Yellow Gown Door Sign Patient Fall Education Report given to GIFTY Jordan.
--- NOTE | 2020-09-25 07:27 | NUR ---
NURSE NOTES: Received report from Dima/RN at 07:26, Observed patient awake, eating breakfast in bed, on room air, no acute distress/SOB noted. Able to make needs known, Denies pain at this time. IV on right FA patent and intact. Bed in low position and locked, Call light within reach. Encouraged to use call light when needed. Will continue plan of care.
[2020-09-25 08:00] VITALS: BP 153/82
[2020-09-25] MEDS: Vancomycin 1.25gm/250ml Premix IVPB SCH (08:35)
[2020-09-25] MEDS: Heparin 5000 units/ml inj SUBQ SCH ×2 (08:35→20:06)
[2020-09-25] MEDS: D5 1/2NS w/KCl 20mEq 1,000 ML IV SCH ×2 (08:36→21:28)
[2020-09-25] MEDS ORDERED: NS 275ml ONE (10:04)
[2020-09-25] MEDS ORDERED: Tubing IV Secondary IV ONE (10:04)
--- NOTE | 2020-09-25 11:38 | Surgery Progress Note ---
Surgery Progress Note Subjective Symptoms: improved, pain absent, tolerating diet, passing flatus, BM Objective Last 24 Hour Vital Signs Date Time Temp Pulse Resp B/P (MAP) Pulse Ox O2 Delivery O2 Flow Rate FiO2 09/25/20 09:00 Room Air 09/25/20 08:00 97 09/25/20 08:00 96.9 92 19 153/82 (105) 99 09/25/20 06:00 103 100 100 09/25/20 04:00 97.9 88 18 127/69 (88) 99 09/25/20 04:00 86 09/25/20 00:00 93 09/25/20 00:00 100 104 100 09/25/20 00:00 98.1 103 18 132/82 (99) 97 09/24/20 21:00 Room Air 09/24/20 20:00 97.6 91 18 130/81 (97) 91 09/24/20 20:00 86 09/24/20 17:35 99 103 109 09/24/20 16:00 93 09/24/20 16:00 97.9 103 20 147/72 (97) 96 09/24/20 12:00 98.4 100 20 148/80 (102) 95 09/24/20 12:00 82 09/24/20 12:00 103 104 113 I&O Intake and Output 09/24/20 09/25/20 19:00 07:00 Intake Total 360 ml Output Total 800 ml 400 ml Balance -440 ml -400 ml Intake Oral 360 ml Output Urine Total 800 ml Other 400 ml Dressing: dry Wound: clean Cardiovascular: RSR Respiratory: clear Abdomen: soft, non-tender, present bowel sounds, non-distended Extremities: edema, no tenderness, no cyanosis, pulses, other Laboratory Tests Test 09/25/20 04:30 White Blood Count 8.2 K/UL (4.8-10.8) Red Blood Count 4.58 M/UL (4.70-6.10) L Hemoglobin 11.5 G/DL (14.2-18.0) L Hematocrit 36.9 % (42.0-52.0) L Mean Corpuscular Volume 80 FL (80-99) Mean Corpuscular Hemoglobin 25.1 PG (27.0-31.0) L Mean Corpuscular Hemoglobin Concent 31.2 G/DL (32.0-36.0) L Red Cell Distribution Width 13.5 % (11.6-14.8) Platelet Count 339 K/UL (150-450) Mean Platelet Volume 9.0 FL (6.5-10.1) Neutrophils (%) (Auto) 58.5 % (45.0-75.0) Lymphocytes (%) (Auto) 24.6 % (20.0-45.0) Monocytes (%) (Auto) 11.8 % (1.0-10.0) H Eosinophils (%) (Auto) 3.4 % (0.0-3.0) H Basophils (%) (Auto) 1.8 % (0.0-2.0) Sodium Level 143 MMOL/L (136-145) Potassium Level 3.7 MMOL/L (3.5-5.1) Chloride Level 108 MMOL/L (98-107) H Carbon Dioxide Level 24 MMOL/L (21-32) Anion Gap 11 mmol/L (5-15) Blood Urea Nitrogen 8 mg/dL (7-18) Creatinine 0.9 MG/DL (0.55-1.30) Estimat Glomerular Filtration Rate > 60 mL/min (>60) Glucose Level 87 MG/DL (74-106) Calcium Level 8.9 MG/DL (8.5-10.1) Phosphorus Level 2.9 MG/DL (2.5-4.9) Magnesium Level 2.0 MG/DL (1.8-2.4) Pro-B-Type Natriuretic Peptide 406 pg/mL (0-125) H Thyroid Stimulating Hormone (TSH) 6.291 uiU/mL (0.358-3.740) Free Thyroxine 1.05 NG/DL (0.76-1.46) Plan Problems: (1) Generalized weakness (2) Dehydration (3) Cellulitis Assessment & Plan: 70-year-old male with right lower extremity cellulitis. Multiple scabs identified. Patient denies trauma states he does occasionally have itching from the edema and scratches in the recent is formed erythema and cellulitis. No nausea vomiting fever chills. Labs noted. Keep right leg elevated IV antibiotics no abscess identified no acute surgical intervention planned or necessary at this time. Will monitor to ensure resolution of cellulitis. Local wound care. Diet as tolerated we will follow with recommendations thank you for let allowing me to participate in patient's care Bilaterally, grayscale and duplex images demonstrate no evidence of intraluminal thrombus. Normal phasic Doppler waveforms, demonstrating normal augmentation response and no evidence of valvular insufficiency. Greater saphenous vein(s) and tibial veins are patent. Normal compressibility. Impression: Negative for evidence of lower extremity deep venous thrombosis bilaterally (4) Near syncope Carlton Williamson Sep 25, 2020 11:38
[2020-09-25 12:00] VITALS: BP 161/88
--- NOTE | 2020-09-25 15:45 | Internal Med Progress Note ---
Subjective Date of Service: Sep 25, 2020 Physician Name Kishor Turner Attending Physician Devin Ochoa MD Current Medications Medications (Trade) Dose Ordered Sig/Anthony Route PRN Reason Start Time Stop Time Status Last Admin Dose Admin Acetaminophen (Tylenol) 650 mg Q6H PRN ORAL FEVER 09/24/20 05:45 10/24/20 05:44 Acetaminophen (Tylenol) 650 mg Q6H PRN ORAL Mild Pain (Pain Scale 1-3) 09/24/20 05:45 10/24/20 05:44 Acetaminophen/ Hydrocodone Bitart ([place] 5/325) 1 tab Q6H PRN ORAL moderate to severer pain 09/24/20 05:45 10/01/20 05:44 Ceftriaxone Sodium 1 gm/ Dextrose 55 ml @ 110 mls/hr Q24H IVPB 09/24/20 22:00 10/01/20 21:59 09/24/20 21:20 Clonidine HCl (Catapres Tab) 0.1 mg Q4H PRN ORAL sbp>170 09/24/20 13:00 12/23/20 12:59 Dextrose/ Electrolytes 1,000 ml @ 75 mls/hr [id number] IV 09/24/20 07:00 10/24/20 06:59 09/25/20 08:36 Heparin Sodium (Porcine) (Heparin 5000 units/ml) 5,000 units EVERY 12 HOURS SUBQ 09/24/20 09:00 11/08/20 08:59 09/25/20 08:35 Ondansetron HCl (Zofran) 4 mg Q4H PRN IVP Nausea & Vomiting 09/24/20 05:45 10/24/20 05:44 Vancomycin HCl 250 ml @ 166.667 mls/hr Q24H IVPB 09/24/20 09:00 09/29/20 08:59 09/25/20 08:35 Vancomycin HCl ([facility] pharmacy to dose) 1 ea DAILY PRN MISC Per rx protocol 09/24/20 05:45 10/24/20 05:44 Zolpidem Tartrate (Ambien) 5 mg HSPRN PRN ORAL Insomnia 09/24/20 05:45 10/01/20 05:44 Allergies: Coded Allergies: No Known Allergies (Unverified , 09/23/20) ROS Limited/Unobtainable: Yes Subjective 70 YO M admitted with near syncope and dehydration. Cover for Int Parvez-Dr Ochoa Objective Last Vital Signs Date Time Temp Pulse Resp B/P (MAP) Pulse Ox O2 Delivery O2 Flow Rate FiO2 09/25/20 12:00 74 09/25/20 12:00 98.3 18 161/88 (112) 98 09/25/20 09:00 Room Air Laboratory Tests Test 09/25/20 04:30 White Blood Count 8.2 K/UL (4.8-10.8) Red Blood Count 4.58 M/UL (4.70-6.10) L Hemoglobin 11.5 G/DL (14.2-18.0) L Hematocrit 36.9 % (42.0-52.0) L Mean Corpuscular Volume 80 FL (80-99) Mean Corpuscular Hemoglobin 25.1 PG (27.0-31.0) L Mean Corpuscular Hemoglobin Concent 31.2 G/DL (32.0-36.0) L Red Cell Distribution Width 13.5 % (11.6-14.8) Platelet Count 339 K/UL (150-450) Mean Platelet Volume 9.0 FL (6.5-10.1) Neutrophils (%) (Auto) 58.5 % (45.0-75.0) Lymphocytes (%) (Auto) 24.6 % (20.0-45.0) Monocytes (%) (Auto) 11.8 % (1.0-10.0) H Eosinophils (%) (Auto) 3.4 % (0.0-3.0) H Basophils (%) (Auto) 1.8 % (0.0-2.0) Sodium Level 143 MMOL/L (136-145) Potassium Level 3.7 MMOL/L (3.5-5.1) Chloride Level 108 MMOL/L (98-107) H Carbon Dioxide Level 24 MMOL/L (21-32) Anion Gap 11 mmol/L (5-15) Blood Urea Nitrogen 8 mg/dL (7-18) Creatinine 0.9 MG/DL (0.55-1.30) Estimat Glomerular Filtration Rate > 60 mL/min (>60) Glucose Level 87 MG/DL (74-106) Calcium Level 8.9 MG/DL (8.5-10.1) Phosphorus Level 2.9 MG/DL (2.5-4.9) Magnesium Level 2.0 MG/DL (1.8-2.4) Pro-B-Type Natriuretic Peptide 406 pg/mL (0-125) H Thyroid Stimulating Hormone (TSH) 6.291 uiU/mL (0.358-3.740) Free Thyroxine 1.05 NG/DL (0.76-1.46) Microbiology Date/Time Source Procedure Growth Status 09/23/20 22:15 Nasopharynx Coronavirus COVID-19 PCR (LC) - Final Complete 09/23/20 22:15 Nasal Nares - Final Complete 09/23/20 22:15 Nasal Nares - Final Complete 09/23/20 21:56 Blood Blood Culture - Preliminary NO GROWTH AFTER 24 HOURS Resulted 09/23/20 21:40 Blood Blood Culture - Preliminary NO GROWTH AFTER 24 HOURS Resulted Intake and Output 09/24/20 09/25/20 19:00 07:00 Intake Total 360 ml Output Total 800 ml 400 ml Balance -440 ml -400 ml Intake Oral 360 ml Output Urine Total 800 ml Other 400 ml Objective PHYSICAL EXAMINATION: GENERAL: The patient awake, responsive, no acute distress. HEAD AND NECK: Pupils are equal and reactive to light. Extraocular muscles intact. Neck was supple. No JVD. LUNGS: Good air entry with no wheezing or rales. HEART: S1, S2. Regular rate and rhythm. No murmur or gallop. ABDOMEN: Soft, nondistended, nontender. Positive bowel sounds. EXTREMITIES: No cyanosis, clubbing. Cellulitis, bilateral lower extremity, +2 edema bilateral lower extremity. Some skin tear was noted on lower extremity and warm to touch, left greater than right. The erythema on the lower extremity is up to the mid tibia fibula area and ankle area. NEUROLOGIC: Cranial nerves II through XII are grossly intact. The patient is moving all the extremities. RECTAL: Refused and deferred. GENITOURINARY: Refused and deferred. PSYCHIATRIC: Mood and affect is anxious. Assessment/Plan Assessment/Plan ASSESSMENT: 1. Near syncope, most likely secondary to the hypovolemia with orthostatic hypotension. 2. Cellulitis of lower extremity. 3. Failure to thrive. PLAN: Admit the patient to monitored unit. We will follow up with the 2D echo. Start the patient on IV hydration, broad-spectrum antibiotic with cefepime and vancomycin. DVT prophylaxis, heparin subcutaneous. Consider duplex of lower extremity. Code status is full code. Follow up with Dr. Dr Jayda Staton = ID consultation Dr. Oliver Plata = cardiology Dr. Carlton Williamson = wound care management. Kishor Turner MD Sep 25, 2020 15:45
[2020-09-25 16:00] VITALS: BP 140/75
--- NOTE | 2020-09-25 16:14 | Cardiac Electrophysiology PN ---
Assessment/Plan Assessment/Plan 1. Syncopal episodes. Ruled out for myocardial infarction. His echocardiogram showed normal left ventricular systolic function with no evidence of pericardial effusion or aortic stenosis. It could be merely due to dehydration as the patient was hypotensive by the time when paramedics arrived. 2. Hypertension. Initial blood pressure was in the 80s. However, blood pressure right now is in the 160s. Added Norvasc 5 bid and p.r.n. clonidine 3. Shortness of breath. The patient was ruled out for COVID and is on antibiotic for possible pneumonia. 4. Right lower limb cellulitis, on antibiotic Subjective Subjective Off isolation. No CP or SOB. BP in 160s Objective Last 24 Hour Vital Signs Date Time Temp Pulse Resp B/P (MAP) Pulse Ox O2 Delivery O2 Flow Rate FiO2 09/25/20 12:00 74 09/25/20 12:00 98.3 75 18 161/88 (112) 98 09/25/20 09:00 Room Air 09/25/20 08:00 97 09/25/20 08:00 96.9 92 19 153/82 (105) 99 09/25/20 06:00 103 100 100 09/25/20 04:00 97.9 88 18 127/69 (88) 99 09/25/20 04:00 86 09/25/20 00:00 93 09/25/20 00:00 100 104 100 09/25/20 00:00 98.1 103 18 132/82 (99) 97 09/24/20 21:00 Room Air 09/24/20 20:00 97.6 91 18 130/81 (97) 91 09/24/20 20:00 86 09/24/20 17:35 99 103 109 Intake and Output 09/24/20 09/25/20 19:00 07:00 Intake Total 360 ml Output Total 800 ml 400 ml Balance -440 ml -400 ml Intake Oral 360 ml Output Urine Total 800 ml Other 400 ml Laboratory Tests Test 09/25/20 04:30 White Blood Count 8.2 K/UL (4.8-10.8) Red Blood Count 4.58 M/UL (4.70-6.10) L Hemoglobin 11.5 G/DL (14.2-18.0) L Hematocrit 36.9 % (42.0-52.0) L Mean Corpuscular Volume 80 FL (80-99) Mean Corpuscular Hemoglobin 25.1 PG (27.0-31.0) L Mean Corpuscular Hemoglobin Concent 31.2 G/DL (32.0-36.0) L Red Cell Distribution Width 13.5 % (11.6-14.8) Platelet Count 339 K/UL (150-450) Mean Platelet Volume 9.0 FL (6.5-10.1) Neutrophils (%) (Auto) 58.5 % (45.0-75.0) Lymphocytes (%) (Auto) 24.6 % (20.0-45.0) Monocytes (%) (Auto) 11.8 % (1.0-10.0) H Eosinophils (%) (Auto) 3.4 % (0.0-3.0) H Basophils (%) (Auto) 1.8 % (0.0-2.0) Sodium Level 143 MMOL/L (136-145) Potassium Level 3.7 MMOL/L (3.5-5.1) Chloride Level 108 MMOL/L (98-107) H Carbon Dioxide Level 24 MMOL/L (21-32) Anion Gap 11 mmol/L (5-15) Blood Urea Nitrogen 8 mg/dL (7-18) Creatinine 0.9 MG/DL (0.55-1.30) Estimat Glomerular Filtration Rate > 60 mL/min (>60) Glucose Level 87 MG/DL (74-106) Calcium Level 8.9 MG/DL (8.5-10.1) Phosphorus Level 2.9 MG/DL (2.5-4.9) Magnesium Level 2.0 MG/DL (1.8-2.4) Pro-B-Type Natriuretic Peptide 406 pg/mL (0-125) H Thyroid Stimulating Hormone (TSH) 6.291 uiU/mL (0.358-3.740) Free Thyroxine 1.05 NG/DL (0.76-1.46) Microbiology Date/Time Source Procedure Growth Status 09/23/20 22:15 Nasopharynx Coronavirus COVID-19 PCR (LC) - Final Complete 09/23/20 22:15 Nasal Nares - Final Complete 09/23/20 22:15 Nasal Nares - Final Complete 09/23/20 21:56 Blood Blood Culture - Preliminary NO GROWTH AFTER 24 HOURS Resulted 09/23/20 21:40 Blood Blood Culture - Preliminary NO GROWTH AFTER 24 HOURS Resulted Objective HEAD AND NECK: No JVD. LUNGS: Clear. CARDIOVASCULAR: Regular S1 and S2 with no gallop or murmur. ABDOMEN: Soft. EXTREMITIES: No pitting edema. Oliver Plata MD Sep 25, 2020 16:14
--- NOTE | 2020-09-25 19:20 | NUR ---
NURSE HAND-OFF REPORT: Important Events on Shift:N/A Patient Status: Full code Diet: Cardiac Pending Orders: N/A Pending Results/Labs:Morning labs Pending MD notification:N/A Latest Vital Signs: Temperature 97.9 , Pulse 79 , B/P 140 /75 , Respiratory Rate 19 , O2 SAT 97 , Room Air, O2 Flow Rate . Vital Sign Comment: stable EKG Rhythm: Sinus Rhythm Rhythm change?: N MD Notified?: - MD Response: Latest Avila Fall Score: 45 Fall Risk: High Risk Safety Measures: Call light Within Reach, Bed Alarm Zone 1, Side Rails Side Rails x2, Bed position Low and Locked. Fall Precautions: Yellow Socks Yellow Gown Door Sign Patient Fall Education Report given to Eber/GIFTY.
--- NOTE | 2020-09-25 19:30 | NUR ---
NURSE NOTES: Pt. received from GIFTY Jordan. Pt. AAOx4, on room air, breathing even and unlabored, no indications of respiratory distress, no active complaints of pain. IV noted right FA 20g running with D5 1/2 NS and 20KCl at 75cc. Bed low and locked, side rails x3 up, bed alarm active, and call light in reach.
[2020-09-25 20:00] VITALS: BP 148/76
[2020-09-25] MEDS: cefTRIAXone 1 GM in D5W 55 ML IVPB SCH (21:28)
[2020-09-26] VITALS: BP 153/93
[2020-09-26 04:00] VITALS: BP 151/85
--- NOTE | 2020-09-26 04:41 | NUR ---
NURSE NOTES: IV right FA leaking, d/c'd. New IV inserted left FA 20g, now with fluids running.
--- NOTE | 2020-09-26 07:00 | NUR ---
NURSE HAND-OFF REPORT: Important Events on Shift:[New IV inserted Left FA 20g. Pt. with copious amounts of sputum, no indications of respiratory distress] Patient Status: awake, stable Diet: cardiac Pending Orders: na Pending Results/Labs:BMP CBC Pending MD notification:na Latest Vital Signs: Temperature 98.7 , Pulse 75 , B/P 151 /85 , Respiratory Rate 16 , O2 SAT 98 , Room Air, O2 Flow Rate . Vital Sign Comment: stable EKG Rhythm: Sinus Rhythm Rhythm change?: N MD Notified?: - MD Response: Latest Avila Fall Score: 45 Fall Risk: High Risk Safety Measures: Call light Within Reach, Bed Alarm Zone 1, Side Rails Side Rails x2, Bed position Low and Locked. Fall Precautions: Yellow Socks Yellow Gown Door Sign Patient Fall Education Report given to GIFTY Jordan.
--- NOTE | 2020-09-26 07:05 | NUR ---
NURSE NOTES: Received report from Eber/RN, Observed patient awake, sitting up and eating breakfast in bed, on room air, no acute distress/SOB noted. Able to make needs known, Denies pain at this time. IV on Left FA patent and intact. D5 1/2 NS running at 75cc/hr. Bed in low position and locked, Call light within reach. Encouraged to use call light when needed. Will continue plan of care.
[2020-09-26 08:00] VITALS: BP 159/90
[2020-09-26 08:17] LABS: BASOPHILS % (AUTO) 1.7 % (0.0-2.0); EOSINOPHILS % (AUTO) 9.8 % (0.0-3.0); HEMATOCRIT 35.1 % (42.0-52.0); HEMOGLOBIN 11.2 G/DL (14.2-18.0); LYMPHOCYTES % (AUTO) 22.8 % (20.0-45.0); MEAN CORPUSCULAR VOLUME 80 FL (80-99); NEUTROPHILS % (AUTO) 55.7 % (45.0-75.0); PLATELET COUNT 322 K/UL (150-450); RED CELL DISTRIBUTION WIDTH 13.9 % (11.6-14.8); WHITE BLOOD COUNT 8.3 K/UL (4.8-10.8)
[2020-09-26] MEDS: Vancomycin 1.25gm/250ml Premix IVPB SCH (08:19)
[2020-09-26] MEDS: Heparin 5000 units/ml inj SUBQ SCH ×2 (08:20→21:02)
[2020-09-26 08:35] LABS: ANION GAP 12 mmol/L (5-15); BLOOD UREA NITROGEN 11 mg/dL (7-18); CALCIUM 9.1 MG/DL (8.5-10.1); CARBON DIOXIDE 23 MMOL/L (21-32); CHLORIDE 107 MMOL/L (98-107); CREATININE 0.8 MG/DL (0.55-1.30); POTASSIUM 3.7 MMOL/L (3.5-5.1); SODIUM 142 MMOL/L (136-145)
--- NOTE | 2020-09-26 08:58 | Infectious Diseases Prog Note ---
Assessment/Plan 70yo M with: Afebrile Mild leukocytosis to 11, improved Near syncopal event, weakness Satting well on RA 09/23 COVID PCR neg BCx NTD CXR: No acute process Flu neg L hand swelling, r/o cellulitis 09/23 L hand XR: No acute process BLE US neg for DVT Cr 0.9 Plan: Stop vanco #3 Cont empiric CTX #4/7 for cellulitis On discharge can transition to cephalexin 500mg PO QID to complete 7 day course for cellulitis (3 more days) F/u HIV screen 09/26 SP vanco #3 empiric Monitor CBC/CMP Monitor temp curve, hemodynamics Monitor resp status D/w RN Thank you for this consult. [facility] will continue to follow. Subjective Allergies: Coded Allergies: No Known Allergies (Unverified , 09/23/20) AF NAD on RA WBC 8.3 Improved swelling and pain in L hand Decreased swelling in BLE Objective Last 24 Hour Vital Signs Date Time Temp Pulse Resp B/P (MAP) Pulse Ox O2 Delivery O2 Flow Rate FiO2 09/26/20 08:19 94 159/90 09/26/20 08:00 97.9 94 20 159/90 (113) 96 09/26/20 04:00 98.7 75 16 151/85 (107) 98 09/26/20 04:00 75 09/26/20 00:00 98.4 92 16 153/93 (113) 100 09/26/20 00:00 92 09/25/20 21:00 Room Air 09/25/20 20:04 79 148/76 09/25/20 20:00 84 09/25/20 20:00 97.7 84 20 148/76 (100) 97 09/25/20 16:00 97.9 79 19 140/75 (96) 97 09/25/20 16:00 80 09/25/20 12:00 74 09/25/20 12:00 98.3 75 18 161/88 (112) 98 09/25/20 09:00 Room Air Height (Feet): 5 Height (Inches): 1.00 Weight (Pounds): 150 Gen: NAD HEENT: NCAT Pulm: BL chest rise Abd: Non-distended Ext: No c/c. L hard w/ decreased swelling/pain on palpation/rotation. BLE w/ decreased swelling/erythema Neuro: Awake, interactive Microbiology Date/Time Source Procedure Growth Status 09/23/20 22:15 Nasopharynx Coronavirus COVID-19 PCR (LC) - Final Complete 09/23/20 22:15 Nasal Nares - Final Complete 09/23/20 22:15 Nasal Nares - Final Complete 09/23/20 21:56 Blood Blood Culture - Preliminary NO GROWTH AFTER 24 HOURS Resulted 09/23/20 21:40 Blood Blood Culture - Preliminary NO GROWTH AFTER 24 HOURS Resulted Laboratory Tests Test 09/26/20 07:00 White Blood Count 8.3 K/UL (4.8-10.8) Red Blood Count 4.40 M/UL (4.70-6.10) L Hemoglobin 11.2 G/DL (14.2-18.0) L Hematocrit 35.1 % (42.0-52.0) L Mean Corpuscular Volume 80 FL (80-99) Mean Corpuscular Hemoglobin 25.4 PG (27.0-31.0) L Mean Corpuscular Hemoglobin Concent 31.8 G/DL (32.0-36.0) L Red Cell Distribution Width 13.9 % (11.6-14.8) Platelet Count 322 K/UL (150-450) Mean Platelet Volume 9.8 FL (6.5-10.1) Neutrophils (%) (Auto) 55.7 % (45.0-75.0) Lymphocytes (%) (Auto) 22.8 % (20.0-45.0) Monocytes (%) (Auto) 10.0 % (1.0-10.0) Eosinophils (%) (Auto) 9.8 % (0.0-3.0) H Basophils (%) (Auto) 1.7 % (0.0-2.0) Sodium Level 142 MMOL/L (136-145) Potassium Level 3.7 MMOL/L (3.5-5.1) Chloride Level 107 MMOL/L (98-107) Carbon Dioxide Level 23 MMOL/L (21-32) Anion Gap 12 mmol/L (5-15) Blood Urea Nitrogen 11 mg/dL (7-18) Creatinine 0.8 MG/DL (0.55-1.30) Estimat Glomerular Filtration Rate > 60 mL/min (>60) Glucose Level 89 MG/DL (74-106) Calcium Level 9.1 MG/DL (8.5-10.1) Current Medications Medications (Trade) Dose Ordered Sig/Anthony Route PRN Reason Start Time Stop Time Status Last Admin Dose Admin Acetaminophen (Tylenol) 650 mg Q6H PRN ORAL FEVER 09/24/20 05:45 10/24/20 05:44 Acetaminophen (Tylenol) 650 mg Q6H PRN ORAL Mild Pain (Pain Scale 1-3) 09/24/20 05:45 10/24/20 05:44 Acetaminophen/ Hydrocodone Bitart ([place] 5/325) 1 tab Q6H PRN ORAL moderate to severer pain 09/24/20 05:45 10/01/20 05:44 Amlodipine Besylate (Norvasc) 5 mg Q12HR ORAL 09/25/20 21:00 10/25/20 20:59 09/26/20 08:19 Ceftriaxone Sodium 1 gm/ Dextrose 55 ml @ 110 mls/hr Q24H IVPB 09/24/20 22:00 10/01/20 21:59 09/25/20 21:28 Clonidine HCl (Catapres Tab) 0.1 mg Q4H PRN ORAL sbp>170 09/24/20 13:00 12/23/20 12:59 Dextrose/ Electrolytes 1,000 ml @ 75 mls/hr [id number] IV 09/24/20 07:00 10/24/20 06:59 09/25/20 21:28 Heparin Sodium (Porcine) (Heparin 5000 units/ml) 5,000 units EVERY 12 HOURS SUBQ 09/24/20 09:00 11/08/20 08:59 09/26/20 08:20 Ondansetron HCl (Zofran) 4 mg Q4H PRN IVP Nausea & Vomiting 09/24/20 05:45 10/24/20 05:44 Vancomycin HCl 250 ml @ 166.667 mls/hr Q24H IVPB 09/24/20 09:00 09/29/20 08:59 09/26/20 08:19 Vancomycin HCl ([facility] pharmacy to dose) 1 ea DAILY PRN MISC Per rx protocol 09/24/20 05:45 10/24/20 05:44 Zolpidem Tartrate (Ambien) 5 mg HSPRN PRN ORAL Insomnia 09/24/20 05:45 10/01/20 05:44 Jayda Staton M.D. Sep 26, 2020 08:58
--- NOTE | 2020-09-26 11:34 | Surgery Progress Note ---
Surgery Progress Note Subjective Symptoms: improved, pain absent, tolerating diet, voiding well, passing flatus, BM Objective Last 24 Hour Vital Signs Date Time Temp Pulse Resp B/P (MAP) Pulse Ox O2 Delivery O2 Flow Rate FiO2 09/26/20 09:00 Room Air 09/26/20 08:19 94 159/90 09/26/20 08:00 97.9 94 20 159/90 (113) 96 09/26/20 08:00 81 09/26/20 04:00 98.7 75 16 151/85 (107) 98 09/26/20 04:00 75 09/26/20 00:00 98.4 92 16 153/93 (113) 100 09/26/20 00:00 92 09/25/20 21:00 Room Air 09/25/20 20:04 79 148/76 09/25/20 20:00 84 09/25/20 20:00 97.7 84 20 148/76 (100) 97 09/25/20 16:00 97.9 79 19 140/75 (96) 97 09/25/20 16:00 80 09/25/20 12:00 74 09/25/20 12:00 98.3 75 18 161/88 (112) 98 I&O Intake and Output 09/25/20 09/26/20 19:00 07:00 Intake Total 1000 ml 880 ml Output Total 1200 ml 1500 ml Balance -200 ml -620 ml Intake Oral 1000 ml IV Total 880 ml Output Urine Total 1200 ml 1500 ml # Voids 2 5 # Bowel Movements 1 Dressing: dry Wound: clean Cardiovascular: RSR Respiratory: clear Abdomen: soft, flat, non-tender, present bowel sounds, non-distended Extremities: no edema, no tenderness, no cyanosis Laboratory Tests Test 09/26/20 07:00 09/26/20 07:10 White Blood Count 8.3 K/UL (4.8-10.8) Red Blood Count 4.40 M/UL (4.70-6.10) L Hemoglobin 11.2 G/DL (14.2-18.0) L Hematocrit 35.1 % (42.0-52.0) L Mean Corpuscular Volume 80 FL (80-99) Mean Corpuscular Hemoglobin 25.4 PG (27.0-31.0) L Mean Corpuscular Hemoglobin Concent 31.8 G/DL (32.0-36.0) L Red Cell Distribution Width 13.9 % (11.6-14.8) Platelet Count 322 K/UL (150-450) Mean Platelet Volume 9.8 FL (6.5-10.1) Neutrophils (%) (Auto) 55.7 % (45.0-75.0) Lymphocytes (%) (Auto) 22.8 % (20.0-45.0) Monocytes (%) (Auto) 10.0 % (1.0-10.0) Eosinophils (%) (Auto) 9.8 % (0.0-3.0) H Basophils (%) (Auto) 1.7 % (0.0-2.0) Sodium Level 142 MMOL/L (136-145) Potassium Level 3.7 MMOL/L (3.5-5.1) Chloride Level 107 MMOL/L (98-107) Carbon Dioxide Level 23 MMOL/L (21-32) Anion Gap 12 mmol/L (5-15) Blood Urea Nitrogen 11 mg/dL (7-18) Creatinine 0.8 MG/DL (0.55-1.30) Estimat Glomerular Filtration Rate > 60 mL/min (>60) Glucose Level 89 MG/DL (74-106) Calcium Level 9.1 MG/DL (8.5-10.1) HIV (1&2) Antibody Rapid Pending Plan Problems: (1) Generalized weakness (2) Dehydration (3) Cellulitis Assessment & Plan: 70-year-old male with right lower extremity cellulitis. Mul tiple scabs identified. Patient denies trauma states he does occasionally have itching from the edema and scratches in the recent is formed erythema and cellulitis. No nausea vomiting fever chills. Labs noted. Keep right leg elevated IV antibiotics no abscess identified no acute surgical intervention planned or necessary at this time. Will monitor to ensure resolution of cellu litis. Local wound care. Diet as tolerated we will follow with recommendations thank you for let allowing me to participate in patient's care Bilaterally, grayscale and duplex images demonstrate no evidence of intraluminal thrombus. Normal phasic Doppler waveforms, demonstrating normal augmentation response and no evidence of valvular insufficiency. Greater saphenous vein(s) and tibial veins are patent. Normal compressibility. Impression: Negative for evidence of lower extremity deep venous thrombosis bilaterally (4) Near syncope Benyamini,Carlton Sep 26, 2020 11:34
[2020-09-26 12:00] VITALS: BP 136/81
[2020-09-26] MEDS: D5 1/2NS w/KCl 20mEq 1,000 ML IV SCH (12:05)
--- NOTE | 2020-09-26 14:21 | Internal Med Progress Note ---
Subjective Date of Service: Sep 26, 2020 Physician Name Kishor Turner Attending Physician Devin Ochoa MD Current Medications Medications (Trade) Dose Ordered Sig/Anthony Route PRN Reason Start Time Stop Time Status Last Admin Dose Admin Acetaminophen (Tylenol) 650 mg Q6H PRN ORAL FEVER 09/24/20 05:45 10/24/20 05:44 Acetaminophen (Tylenol) 650 mg Q6H PRN ORAL Mild Pain (Pain Scale 1-3) 09/24/20 05:45 10/24/20 05:44 Acetaminophen/ Hydrocodone Bitart ([place] 5/325) 1 tab Q6H PRN ORAL moderate to severer pain 09/24/20 05:45 10/01/20 05:44 Amlodipine Besylate (Norvasc) 5 mg Q12HR ORAL 09/25/20 21:00 10/25/20 20:59 09/26/20 08:19 Ceftriaxone Sodium 1 gm/ Dextrose 55 ml @ 110 mls/hr Q24H IVPB 09/24/20 22:00 10/01/20 21:59 09/25/20 21:28 Clonidine HCl (Catapres Tab) 0.1 mg Q4H PRN ORAL sbp>170 09/24/20 13:00 12/23/20 12:59 Dextrose/ Electrolytes 1,000 ml @ 75 mls/hr [id number] IV 09/24/20 07:00 10/24/20 06:59 09/26/20 12:05 Heparin Sodium (Porcine) (Heparin 5000 units/ml) 5,000 units EVERY 12 HOURS SUBQ 09/24/20 09:00 11/08/20 08:59 09/26/20 08:20 Ondansetron HCl (Zofran) 4 mg Q4H PRN IVP Nausea & Vomiting 09/24/20 05:45 10/24/20 05:44 Zolpidem Tartrate (Ambien) 5 mg HSPRN PRN ORAL Insomnia 09/24/20 05:45 10/01/20 05:44 Allergies: Coded Allergies: No Known Allergies (Unverified , 09/23/20) ROS Limited/Unobtainable: No Constitutional: Reports: no symptoms HEENT: Reports: no symptoms Cardiovascular: Reports: no symptoms Respiratory: Reports: no symptoms Gastrointestinal/Abdominal: Reports: no symptoms Genitourinary: Reports: no symptoms Neurologic/Psychiatric: Reports: no symptoms Subjective 70 YO M admitted with near syncope and dehydration. Now cellulitis left hand. Cover for Int Parvez-Dr Ochoa Objective Last Vital Signs Date Time Temp Pulse Resp B/P (MAP) Pulse Ox O2 Delivery O2 Flow Rate FiO2 09/26/20 12:00 89 09/26/20 12:00 98.1 20 136/81 (99) 98 09/26/20 09:00 Room Air Laboratory Tests Test 09/26/20 07:00 09/26/20 07:10 White Blood Count 8.3 K/UL (4.8-10.8) Red Blood Count 4.40 M/UL (4.70-6.10) L Hemoglobin 11.2 G/DL (14.2-18.0) L Hematocrit 35.1 % (42.0-52.0) L Mean Corpuscular Volume 80 FL (80-99) Mean Corpuscular Hemoglobin 25.4 PG (27.0-31.0) L Mean Corpuscular Hemoglobin Concent 31.8 G/DL (32.0-36.0) L Red Cell Distribution Width 13.9 % (11.6-14.8) Platelet Count 322 K/UL (150-450) Mean Platelet Volume 9.8 FL (6.5-10.1) Neutrophils (%) (Auto) 55.7 % (45.0-75.0) Lymphocytes (%) (Auto) 22.8 % (20.0-45.0) Monocytes (%) (Auto) 10.0 % (1.0-10.0) Eosinophils (%) (Auto) 9.8 % (0.0-3.0) H Basophils (%) (Auto) 1.7 % (0.0-2.0) Sodium Level 142 MMOL/L (136-145) Potassium Level 3.7 MMOL/L (3.5-5.1) Chloride Level 107 MMOL/L (98-107) Carbon Dioxide Level 23 MMOL/L (21-32) Anion Gap 12 mmol/L (5-15) Blood Urea Nitrogen 11 mg/dL (7-18) Creatinine 0.8 MG/DL (0.55-1.30) Estimat Glomerular Filtration Rate > 60 mL/min (>60) Glucose Level 89 MG/DL (74-106) Calcium Level 9.1 MG/DL (8.5-10.1) HIV (1&2) Antibody Rapid Pending Microbiology Date/Time Source Procedure Growth Status 09/23/20 22:15 Nasopharynx Coronavirus COVID-19 PCR (LC) - Final Complete 09/23/20 22:15 Nasal Nares - Final Complete 09/23/20 22:15 Nasal Nares - Final Complete 09/23/20 21:56 Blood Blood Culture - Preliminary NO GROWTH AFTER 24 HOURS Resulted 09/23/20 21:40 Blood Blood Culture - Preliminary NO GROWTH AFTER 24 HOURS Resulted Intake and Output 09/25/20 09/26/20 19:00 07:00 Intake Total 1000 ml 880 ml Output Total 1200 ml 1500 ml Balance -200 ml -620 ml Intake Oral 1000 ml IV Total 880 ml Output Urine Total 1200 ml 1500 ml # Voids 2 5 # Bowel Movements 1 Objective PHYSICAL EXAMINATION: GENERAL: The patient awake, responsive, no acute distress. HEAD AND NECK: Pupils are equal and reactive to light. Extraocular muscles intact. Neck was supple. No JVD. LUNGS: Good air entry with no wheezing or rales. HEART: S1, S2. Regular rate and rhythm. No murmur or gallop. ABDOMEN: Soft, nondistended, nontender. Positive bowel sounds. EXTREMITIES: No cyanosis, clubbing. Cellulitis, bilateral lower extremity, +2 edema bilateral lower extremity. Some skin tear was noted on lower extremity and warm to touch, left greater than right. The erythema on the lower extremity is up to the mid tibia fibula area and ankle area. NEUROLOGIC: Cranial nerves II through XII are grossly intact. The patient is moving all the extremities. RECTAL: Refused and deferred. GENITOURINARY: Refused and deferred. PSYCHIATRIC: Mood and affect is anxious. Assessment/Plan Assessment/Plan ASSESSMENT: 1. Near syncope, most likely secondary to the hypovolemia with orthostatic hypotension. 2. Cellulitis of left hand. 3. Failure to thrive. PLAN: 1. Admit the patient to monitored unit. 2. antibiotic = ceftriaxone; S/P vancomycin. 3. DVT prophylaxis, heparin subcutaneous. 4. Code status is full code. 5. Dr Jayda Staton = ID consultation 6. Dr. Oliver Plata = cardiology 7. Dr. Carlton Benyamini = wound care management. Kishor Turner MD Sep 26, 2020 14:21
--- NOTE | 2020-09-26 15:16 | Cardiac Electrophysiology PN ---
Assessment/Plan Assessment/Plan 1. Syncopal episodes. Ruled out for myocardial infarction. echocardiogram showed normal left ventricular systolic function with no evidence of pericardial effusion or aortic stenosis. It could be merely due to dehydration as the patient was hypotensive by the time when paramedics arrived. 2. Hypertension. Initial blood pressure was in the 80s. However, blood pressure was is in the 160s. On Norvasc 5 bid and p.r.n. clonidine 3. Shortness of breath. The patient was ruled out for COVID and is on antibiotic for possible pneumonia. 4. Right lower limb cellulitis, on antibiotic Subjective Subjective Off isolation. No CP or SOB. BP better on RA Objective Last 24 Hour Vital Signs Date Time Temp Pulse Resp B/P (MAP) Pulse Ox O2 Delivery O2 Flow Rate FiO2 09/26/20 12:00 89 09/26/20 12:00 98.1 72 20 136/81 (99) 98 09/26/20 09:00 Room Air 09/26/20 08:19 94 159/90 09/26/20 08:00 97.9 94 20 159/90 (113) 96 09/26/20 08:00 81 09/26/20 04:00 98.7 75 16 151/85 (107) 98 09/26/20 04:00 75 09/26/20 00:00 98.4 92 16 153/93 (113) 100 09/26/20 00:00 92 09/25/20 21:00 Room Air 09/25/20 20:04 79 148/76 09/25/20 20:00 84 09/25/20 20:00 97.7 84 20 148/76 (100) 97 09/25/20 16:00 97.9 79 19 140/75 (96) 97 09/25/20 16:00 80 Intake and Output 09/25/20 09/26/20 19:00 07:00 Intake Total 1000 ml 880 ml Output Total 1200 ml 1500 ml Balance -200 ml -620 ml Intake Oral 1000 ml IV Total 880 ml Output Urine Total 1200 ml 1500 ml # Voids 2 5 # Bowel Movements 1 Laboratory Tests Test 09/26/20 07:00 09/26/20 07:10 White Blood Count 8.3 K/UL (4.8-10.8) Red Blood Count 4.40 M/UL (4.70-6.10) L Hemoglobin 11.2 G/DL (14.2-18.0) L Hematocrit 35.1 % (42.0-52.0) L Mean Corpuscular Volume 80 FL (80-99) Mean Corpuscular Hemoglobin 25.4 PG (27.0-31.0) L Mean Corpuscular Hemoglobin Concent 31.8 G/DL (32.0-36.0) L Red Cell Distribution Width 13.9 % (11.6-14.8) Platelet Count 322 K/UL (150-450) Mean Platelet Volume 9.8 FL (6.5-10.1) Neutrophils (%) (Auto) 55.7 % (45.0-75.0) Lymphocytes (%) (Auto) 22.8 % (20.0-45.0) Monocytes (%) (Auto) 10.0 % (1.0-10.0) Eosinophils (%) (Auto) 9.8 % (0.0-3.0) H Basophils (%) (Auto) 1.7 % (0.0-2.0) Sodium Level 142 MMOL/L (136-145) Potassium Level 3.7 MMOL/L (3.5-5.1) Chloride Level 107 MMOL/L (98-107) Carbon Dioxide Level 23 MMOL/L (21-32) Anion Gap 12 mmol/L (5-15) Blood Urea Nitrogen 11 mg/dL (7-18) Creatinine 0.8 MG/DL (0.55-1.30) Estimat Glomerular Filtration Rate > 60 mL/min (>60) Glucose Level 89 MG/DL (74-106) Calcium Level 9.1 MG/DL (8.5-10.1) HIV (1&2) Antibody Rapid Pending Microbiology Date/Time Source Procedure Growth Status 09/23/20 22:15 Nasopharynx Coronavirus COVID-19 PCR (LC) - Final Complete 09/23/20 22:15 Nasal Nares - Final Complete 09/23/20 22:15 Nasal Nares - Final Complete 09/23/20 21:56 Blood Blood Culture - Preliminary NO GROWTH AFTER 24 HOURS Resulted 09/23/20 21:40 Blood Blood Culture - Preliminary NO GROWTH AFTER 24 HOURS Resulted Objective HEAD AND NECK: No JVD. LUNGS: Clear. CARDIOVASCULAR: Regular S1 and S2 with no gallop or murmur. ABDOMEN: Soft. EXTREMITIES: No pitting edema. Oliver Plata MD Sep 26, 2020 15:16
[2020-09-26 16:00] VITALS: BP 123/65
--- NOTE | 2020-09-26 19:10 | NUR ---
NURSE HAND-OFF REPORT: Important Events on Shift:N/A Patient Status: Full code Diet: Cardiac Pending Orders: N/A Pending Results/Labs:N/A Pending MD notification:N/A Latest Vital Signs: Temperature 97.5 , Pulse 71 , B/P 123 /65 , Respiratory Rate 20 , O2 SAT 99 , Room Air, O2 Flow Rate . Vital Sign Comment: stable EKG Rhythm: Sinus Rhythm Rhythm change?: N MD Notified?: - MD Response: Latest Avila Fall Score: 45 Fall Risk: High Risk Safety Measures: Call light Within Reach, Bed Alarm Zone 1, Side Rails Side Rails x2, Bed position Low and Locked. Fall Precautions: Yellow Socks Yellow Gown Door Sign Patient Fall Education Report given to Eber/GIFTY.
--- NOTE | 2020-09-26 19:11 | NUR ---
NURSE NOTES: Pt. received from GIFTY Jordan. Pt. AAOx4, on room air, breathing even and unlabored, no indications of respiratory distress, no active complaints of pain. Decreased swelling noted left hand. IV left AC 20g intact and patent running D5 1/2 NS with 20KCl at 75 running well. Bed low and locked, side rails x3 up, bed alarm active, and call light in reach.
[2020-09-26 20:00] VITALS: BP 117/63
[2020-09-26] MEDS: cefTRIAXone 1 GM in D5W 55 ML IVPB SCH (21:01)
[2020-09-27] VITALS: BP 143/66
[2020-09-27] MEDS: D5 1/2NS w/KCl 20mEq 1,000 ML IV SCH ×2 (01:48→14:38)
[2020-09-27 04:00] VITALS: BP 150/84
--- NOTE | 2020-09-27 06:53 | NUR ---
NURSE HAND-OFF REPORT: Important Events on Shift:[pt. with copious productive coughing, ambulatory to bathroom with stand by assist] Patient Status: stable Diet: cardiac Pending Orders: na Pending Results/Labs:na Pending MD notification:request anti naif Latest Vital Signs: Temperature 98.4 , Pulse 83 , B/P 150 /84 , Respiratory Rate 20 , O2 SAT 97 , Room Air, O2 Flow Rate . Vital Sign Comment: stable EKG Rhythm: Sinus Rhythm Rhythm change?: N MD Notified?: - MD Response: Latest Avila Fall Score: 45 Fall Risk: High Risk Safety Measures: Call light Within Reach, Bed Alarm Zone 1, Side Rails Side Rails x2, Bed position Low and Locked. Fall Precautions: Yellow Socks Yellow Gown Door Sign Patient Fall Education Report given to . Addendum: 09/27/20 at 0725 by Eber Brody RN Hand off given to GIFTY Arzola
--- NOTE | 2020-09-27 07:39 | NUR ---
NURSE NOTES: Received report from GIFTY Velázquez. Patient awake, alert, and oriented x3. Seen sitting on side of bed consuming breakfast, patient currently on room air no s/sx of SOB/Distress, no c/o any pain or discomfort at this time. Patient reportedly with episodes of productive cough from previous shift. Will relay to MD. Patient with IV site on LFA running D51/2 NS + 20 mew @ 75cc/hr. Site dry, inplace and intact. No s/sx of redness or swelling. Patient's bed placed on lowest and locked, call light placed within reach and will continue to monitor for any changes in patient's condition.
[2020-09-27 07:40] LABS: BASOPHILS % (AUTO) 1.6 % (0.0-2.0); EOSINOPHILS % (AUTO) 10.9 % (0.0-3.0); HEMATOCRIT 34.6 % (42.0-52.0); HEMOGLOBIN 11.1 G/DL (14.2-18.0); LYMPHOCYTES % (AUTO) 22.2 % (20.0-45.0); MEAN CORPUSCULAR VOLUME 80 FL (80-99); MONOCYTES % (AUTO) 8.7 % (1.0-10.0); NEUTROPHILS % (AUTO) 56.6 % (45.0-75.0); PLATELET COUNT 333 K/UL (150-450); RED BLOOD COUNT 4.34 M/UL (4.70-6.10); RED CELL DISTRIBUTION WIDTH 13.8 % (11.6-14.8); WHITE BLOOD COUNT 8.4 K/UL (4.8-10.8)
[2020-09-27 07:47] LABS: ANION GAP 11 mmol/L (5-15); BLOOD UREA NITROGEN 12 mg/dL (7-18); CALCIUM 8.8 MG/DL (8.5-10.1); CARBON DIOXIDE 22 MMOL/L (21-32); CHLORIDE 107 MMOL/L (98-107); CREATININE 0.8 MG/DL (0.55-1.30); POTASSIUM 3.8 MMOL/L (3.5-5.1); SODIUM 140 MMOL/L (136-145)
[2020-09-27 08:00] VITALS: BP 150/90
[2020-09-27] MEDS: Heparin 5000 units/ml inj SUBQ SCH ×2 (08:14→21:14)
--- NOTE | 2020-09-27 08:17 | NUR ---
CASE MANAGEMENT:REVIEW 09/27/20 SI: NEAR SYNCOPE. DEHYDRATION. LT HAND CELLULITIS 98.1 67 20 150/90 96% ON RA H/H-11.1/34.6 IS: IV ROCEPHIN Q24 IVF@75/HR NORVASC PO Q12 HEPARIN SQ Q12 : TELEMETRY STATUS DCP: SOCIAL SERVICE CONSULT
--- NOTE | 2020-09-27 08:56 | Infectious Diseases Prog Note ---
Assessment/Plan 70yo M with: Afebrile Mild leukocytosis to 11, improved Near syncopal event, weakness Satting well on RA 09/23 COVID PCR neg BCx NTD CXR: No acute process Flu neg L hand swelling, r/o cellulitis 09/23 L hand XR: No acute process BLE US neg for DVT Cr 0.9 Plan: Cont empiric CTX #5/7 for cellulitis On discharge can transition to cephalexin 500mg PO QID to complete 7 day course for cellulitis (2 more days) F/u HIV screen 09/26 SP vanco #3 empiric Monitor CBC/CMP Monitor temp curve, hemodynamics Monitor resp status D/w RN Thank you for this consult. [facility] will continue to follow. Subjective Allergies: Coded Allergies: No Known Allergies (Unverified , 09/23/20) AF NAD on RA WBC 8.4 Decreased swelling and erythema of L hand and BLE Objective Last 24 Hour Vital Signs Date Time Temp Pulse Resp B/P (MAP) Pulse Ox O2 Delivery O2 Flow Rate FiO2 09/27/20 08:14 67 150/90 09/27/20 08:00 98.1 67 20 150/90 (110) 96 09/27/20 04:00 83 09/27/20 04:00 98.4 83 20 150/84 (106) 97 09/27/20 00:00 77 09/27/20 00:00 98.6 77 22 143/66 (91) 98 09/26/20 21:00 Room Air 09/26/20 21:00 81 117/63 09/26/20 20:00 99.1 76 20 117/63 (81) 96 09/26/20 20:00 76 09/26/20 16:00 71 09/26/20 16:00 97.5 81 20 123/65 (84) 99 09/26/20 12:00 89 09/26/20 12:00 98.1 72 20 136/81 (99) 98 09/26/20 09:00 Room Air Height (Feet): 5 Height (Inches): 1.00 Weight (Pounds): 150 Gen: NAD HEENT: NCAT Pulm: BL chest rise Abd: Non-distended Ext: No c/c. L hard w/ decreased swelling/pain on palpation/rotation. BLE w/ decreased swelling/erythema Neuro: Awake, interactive Laboratory Tests Test 09/27/20 07:18 White Blood Count 8.4 K/UL (4.8-10.8) Red Blood Count 4.34 M/UL (4.70-6.10) L Hemoglobin 11.1 G/DL (14.2-18.0) L Hematocrit 34.6 % (42.0-52.0) L Mean Corpuscular Volume 80 FL (80-99) Mean Corpuscular Hemoglobin 25.5 PG (27.0-31.0) L Mean Corpuscular Hemoglobin Concent 32.1 G/DL (32.0-36.0) Red Cell Distribution Width 13.8 % (11.6-14.8) Platelet Count 333 K/UL (150-450) Mean Platelet Volume 9.4 FL (6.5-10.1) Neutrophils (%) (Auto) 56.6 % (45.0-75.0) Lymphocytes (%) (Auto) 22.2 % (20.0-45.0) Monocytes (%) (Auto) 8.7 % (1.0-10.0) Eosinophils (%) (Auto) 10.9 % (0.0-3.0) H Basophils (%) (Auto) 1.6 % (0.0-2.0) Sodium Level 140 MMOL/L (136-145) Potassium Level 3.8 MMOL/L (3.5-5.1) Chloride Level 107 MMOL/L (98-107) Carbon Dioxide Level 22 MMOL/L (21-32) Anion Gap 11 mmol/L (5-15) Blood Urea Nitrogen 12 mg/dL (7-18) Creatinine 0.8 MG/DL (0.55-1.30) Estimat Glomerular Filtration Rate > 60 mL/min (>60) Glucose Level 109 MG/DL (74-106) H Calcium Level 8.8 MG/DL (8.5-10.1) Current Medications Medications (Trade) Dose Ordered Sig/Anthony Route PRN Reason Start Time Stop Time Status Last Admin Dose Admin Acetaminophen (Tylenol) 650 mg Q6H PRN ORAL FEVER 09/24/20 05:45 10/24/20 05:44 Acetaminophen (Tylenol) 650 mg Q6H PRN ORAL Mild Pain (Pain Scale 1-3) 09/24/20 05:45 10/24/20 05:44 Acetaminophen/ Hydrocodone Bitart ([place] 5/325) 1 tab Q6H PRN ORAL moderate to severer pain 09/24/20 05:45 10/01/20 05:44 Amlodipine Besylate (Norvasc) 5 mg Q12HR ORAL 09/25/20 21:00 10/25/20 20:59 09/27/20 08:14 Ceftriaxone Sodium 1 gm/ Dextrose 55 ml @ 110 mls/hr Q24H IVPB 09/24/20 22:00 10/01/20 21:59 09/26/20 21:01 Clonidine HCl (Catapres Tab) 0.1 mg Q4H PRN ORAL sbp>170 09/24/20 13:00 12/23/20 12:59 Dextrose/ Electrolytes 1,000 ml @ 75 mls/hr [id number] IV 09/24/20 07:00 10/24/20 06:59 09/27/20 01:48 Heparin Sodium (Porcine) (Heparin 5000 units/ml) 5,000 units EVERY 12 HOURS SUBQ 09/24/20 09:00 11/08/20 08:59 09/27/20 08:14 Ondansetron HCl (Zofran) 4 mg Q4H PRN IVP Nausea & Vomiting 09/24/20 05:45 10/24/20 05:44 Zolpidem Tartrate (Ambien) 5 mg HSPRN PRN ORAL Insomnia 09/24/20 05:45 10/01/20 05:44 Jayda Staton M.D. Sep 27, 2020 08:56
[2020-09-27] MEDS ORDERED: guaiFENesin /DM 10ml syrup ORAL PRN (11:00)
[2020-09-27 12:00] VITALS: BP 149/80
--- NOTE | 2020-09-27 12:38 | Surgery Progress Note ---
Surgery Progress Note Subjective Symptoms: improved, tolerating diet, passing flatus, pain decreased Objective Last 24 Hour Vital Signs Date Time Temp Pulse Resp B/P (MAP) Pulse Ox O2 Delivery O2 Flow Rate FiO2 09/27/20 12:00 98.2 60 18 149/80 (103) 96 09/27/20 12:00 79 09/27/20 09:00 Room Air 09/27/20 08:14 67 150/90 09/27/20 08:00 98.1 67 20 150/90 (110) 96 09/27/20 08:00 92 09/27/20 04:00 83 09/27/20 04:00 98.4 83 20 150/84 (106) 97 09/27/20 00:00 77 09/27/20 00:00 98.6 77 22 143/66 (91) 98 09/26/20 21:00 Room Air 09/26/20 21:00 81 117/63 09/26/20 20:00 99.1 76 20 117/63 (81) 96 09/26/20 20:00 76 09/26/20 16:00 71 09/26/20 16:00 97.5 81 20 123/65 (84) 99 I&O Intake and Output 09/26/20 09/27/20 19:00 07:00 Intake Total 1140 ml 1680 ml Output Total 1900 ml 1200 ml Balance -760 ml 480 ml Intake Oral 1140 ml 800 ml IV Total 880 ml Output Urine Total 1900 ml 1200 ml # Bowel Movements 2 Dressing: saturated Wound: clean Cardiovascular: RSR Respiratory: clear, decreased breath sounds Abdomen: soft, non-tender, present bowel sounds Extremities: edema, no tenderness, no cyanosis, pulses, other Laboratory Tests Test 09/27/20 07:18 White Blood Count 8.4 K/UL (4.8-10.8) Red Blood Count 4.34 M/UL (4.70-6.10) L Hemoglobin 11.1 G/DL (14.2-18.0) L Hematocrit 34.6 % (42.0-52.0) L Mean Corpuscular Volume 80 FL (80-99) Mean Corpuscular Hemoglobin 25.5 PG (27.0-31.0) L Mean Corpuscular Hemoglobin Concent 32.1 G/DL (32.0-36.0) Red Cell Distribution Width 13.8 % (11.6-14.8) Platelet Count 333 K/UL (150-450) Mean Platelet Volume 9.4 FL (6.5-10.1) Neutrophils (%) (Auto) 56.6 % (45.0-75.0) Lymphocytes (%) (Auto) 22.2 % (20.0-45.0) Monocytes (%) (Auto) 8.7 % (1.0-10.0) Eosinophils (%) (Auto) 10.9 % (0.0-3.0) H Basophils (%) (Auto) 1.6 % (0.0-2.0) Sodium Level 140 MMOL/L (136-145) Potassium Level 3.8 MMOL/L (3.5-5.1) Chloride Level 107 MMOL/L (98-107) Carbon Dioxide Level 22 MMOL/L (21-32) Anion Gap 11 mmol/L (5-15) Blood Urea Nitrogen 12 mg/dL (7-18) Creatinine 0.8 MG/DL (0.55-1.30) Estimat Glomerular Filtration Rate > 60 mL/min (>60) Glucose Level 109 MG/DL (74-106) H Calcium Level 8.8 MG/DL (8.5-10.1) Plan Problems: (1) Generalized weakness (2) Dehydration (3) Cellulitis Assessment & Plan: 70-year-old male with right lower extremity cellulitis. Multiple scabs identified. Patient denies trauma states he does occasionally have itching from the edema and scratches in the recent is formed erythema and cellulitis. No nausea vomiting fever chills. Labs noted. Keep right leg ismael vated IV antibiotics no abscess identified no acute surgical intervention planned or necessary at this time. Will monitor to ensure resolution of cellulitis. Local wound care. Diet as tolerated we will follow with recommendations thank you for let allowing me to participate in patient's care Bilaterally, grayscale and duplex images demonstrate no evidence of intraluminal thrombus. Normal phasic Doppler waveforms, demonstrating normal augmentation response and no evidence of valvular insufficiency. Greater saphenous vein(s) and tibial veins are patent. Normal compressibility. Impression: Negative for evidence of lower extremity deep venous thrombosis bilaterally (4) Near syncope SaeedgladisCarlton Sep 27, 2020 12:38
--- NOTE | 2020-09-27 13:14 | Internal Med Progress Note ---
Subjective Date of Service: Sep 27, 2020 Physician Name Kishor Turner Attending Physician Devin Ochoa MD Current Medications Medications (Trade) Dose Ordered Sig/Anthony Route PRN Reason Start Time Stop Time Status Last Admin Dose Admin Acetaminophen (Tylenol) 650 mg Q6H PRN ORAL FEVER 09/24/20 05:45 10/24/20 05:44 Acetaminophen (Tylenol) 650 mg Q6H PRN ORAL Mild Pain (Pain Scale 1-3) 09/24/20 05:45 10/24/20 05:44 Acetaminophen/ Hydrocodone Bitart ([place] 5/325) 1 tab Q6H PRN ORAL moderate to severer pain 09/24/20 05:45 10/01/20 05:44 Amlodipine Besylate (Norvasc) 5 mg Q12HR ORAL 09/25/20 21:00 10/25/20 20:59 09/27/20 08:14 Ceftriaxone Sodium 1 gm/ Dextrose 55 ml @ 110 mls/hr Q24H IVPB 09/24/20 22:00 10/01/20 21:59 09/26/20 21:01 Clonidine HCl (Catapres Tab) 0.1 mg Q4H PRN ORAL sbp>170 09/24/20 13:00 12/23/20 12:59 Dextrose/ Electrolytes 1,000 ml @ 75 mls/hr [id number] IV 09/24/20 07:00 10/24/20 06:59 09/27/20 01:48 Guaifenesin/ Dextromethorphan (Robitussin DM Syrup) 5 ml Q6H PRN ORAL For Cough 09/27/20 11:00 12/26/20 10:59 09/27/20 11:45 Heparin Sodium (Porcine) (Heparin 5000 units/ml) 5,000 units EVERY 12 HOURS SUBQ 09/24/20 09:00 11/08/20 08:59 09/27/20 08:14 Ondansetron HCl (Zofran) 4 mg Q4H PRN IVP Nausea & Vomiting 09/24/20 05:45 10/24/20 05:44 Zolpidem Tartrate (Ambien) 5 mg HSPRN PRN ORAL Insomnia 09/24/20 05:45 10/01/20 05:44 Allergies: Coded Allergies: No Known Allergies (Unverified , 09/23/20) ROS Limited/Unobtainable: No Constitutional: Reports: no symptoms HEENT: Reports: no symptoms Cardiovascular: Reports: no symptoms Respiratory: Reports: no symptoms Gastrointestinal/Abdominal: Reports: no symptoms Genitourinary: Reports: no symptoms Neurologic/Psychiatric: Reports: no symptoms Subjective 70 YO M admitted with near syncope and dehydration. Now cellulitis left hand. Cover for Int Parvez-Dr Ochoa Objective Last Vital Signs Date Time Temp Pulse Resp B/P (MAP) Pulse Ox O2 Delivery O2 Flow Rate FiO2 09/27/20 12:00 98.2 60 18 149/80 (103) 96 09/27/20 09:00 Room Air Laboratory Tests Test 09/27/20 07:18 White Blood Count 8.4 K/UL (4.8-10.8) Red Blood Count 4.34 M/UL (4.70-6.10) L Hemoglobin 11.1 G/DL (14.2-18.0) L Hematocrit 34.6 % (42.0-52.0) L Mean Corpuscular Volume 80 FL (80-99) Mean Corpuscular Hemoglobin 25.5 PG (27.0-31.0) L Mean Corpuscular Hemoglobin Concent 32.1 G/DL (32.0-36.0) Red Cell Distribution Width 13.8 % (11.6-14.8) Platelet Count 333 K/UL (150-450) Mean Platelet Volume 9.4 FL (6.5-10.1) Neutrophils (%) (Auto) 56.6 % (45.0-75.0) Lymphocytes (%) (Auto) 22.2 % (20.0-45.0) Monocytes (%) (Auto) 8.7 % (1.0-10.0) Eosinophils (%) (Auto) 10.9 % (0.0-3.0) H Basophils (%) (Auto) 1.6 % (0.0-2.0) Sodium Level 140 MMOL/L (136-145) Potassium Level 3.8 MMOL/L (3.5-5.1) Chloride Level 107 MMOL/L (98-107) Carbon Dioxide Level 22 MMOL/L (21-32) Anion Gap 11 mmol/L (5-15) Blood Urea Nitrogen 12 mg/dL (7-18) Creatinine 0.8 MG/DL (0.55-1.30) Estimat Glomerular Filtration Rate > 60 mL/min (>60) Glucose Level 109 MG/DL (74-106) H Calcium Level 8.8 MG/DL (8.5-10.1) Intake and Output 09/26/20 09/27/20 19:00 07:00 Intake Total 1140 ml 1680 ml Output Total 1900 ml 1200 ml Balance -760 ml 480 ml Intake Oral 1140 ml 800 ml IV Total 880 ml Output Urine Total 1900 ml 1200 ml # Bowel Movements 2 Objective PHYSICAL EXAMINATION: GENERAL: The patient awake, responsive, no acute distress. HEAD AND NECK: Pupils are equal and reactive to light. Extraocular muscles intact. Neck was supple. No JVD. LUNGS: Good air entry with no wheezing or rales. HEART: S1, S2. Regular rate and rhythm. No murmur or gallop. ABDOMEN: Soft, nondistended, nontender. Positive bowel sounds. EXTREMITIES: No cyanosis, clubbing. Cellulitis, bilateral lower extremity, +2 edema bilateral lower extremity. Some skin tear was noted on lower extremity and warm to touch, left greater than right. The erythema on the lower extremity is up to the mid tibia fibula area and ankle area. NEUROLOGIC: Cranial nerves II through XII are grossly intact. The patient is moving all the extremities. RECTAL: Refused and deferred. GENITOURINARY: Refused and deferred. PSYCHIATRIC: Mood and affect is anxious. Assessment/Plan Assessment/Plan ASSESSMENT: 1. Near syncope, most likely secondary to the hypovolemia with orthostatic hypotension. 2. Cellulitis of left hand. 3. Failure to thrive. PLAN: 1. Admit the patient to monitored unit. 2. antibiotic = ceftriaxone D# 5/7; S/P vancomycin. 3. DVT prophylaxis, heparin subcutaneous. 4. Code status is full code. 5. Dr Jayda Staton = ID consultation 6. Dr. Oliver Plata = cardiology 7. Dr. Carlton Williamson = wound care management. Kishor Turner MD Sep 27, 2020 13:14
--- NOTE | 2020-09-27 13:42 | NUR ---
INSURANCE CLINICALS/REVIEW FAXED TO [facility]#[phone] fax# [phone]
--- NOTE | 2020-09-27 14:36 | Cardiac Electrophysiology PN ---
Assessment/Plan Assessment/Plan 1. Syncopal episodes. Ruled out for myocardial infarction. Echocardiogram showed normal EF with no evidence of pericardial effusion or aortic stenosis. It could be merely due to dehydration as the patient was hypotensive by the time when paramedics arrived. 2. Hypertension. Initial blood pressure was in the 80s. However, blood pressure was is in the 160s. On Norvasc 5 bid and p.r.n. clonidine 3. Shortness of breath. Ruled out for COVID and is on antibiotic for possible pneumonia. 4. Right lower limb cellulitis, on antibiotic Subjective Subjective Off isolation.In SR BP better on RA Objective Last 24 Hour Vital Signs Date Time Temp Pulse Resp B/P (MAP) Pulse Ox O2 Delivery O2 Flow Rate FiO2 09/27/20 12:00 98.2 60 18 149/80 (103) 96 09/27/20 12:00 79 09/27/20 09:00 Room Air 09/27/20 08:14 67 150/90 09/27/20 08:00 98.1 67 20 150/90 (110) 96 09/27/20 08:00 92 09/27/20 04:00 83 09/27/20 04:00 98.4 83 20 150/84 (106) 97 09/27/20 00:00 77 09/27/20 00:00 98.6 77 22 143/66 (91) 98 09/26/20 21:00 Room Air 09/26/20 21:00 81 117/63 09/26/20 20:00 99.1 76 20 117/63 (81) 96 09/26/20 20:00 76 09/26/20 16:00 71 09/26/20 16:00 97.5 81 20 123/65 (84) 99 Intake and Output 09/26/20 09/27/20 19:00 07:00 Intake Total 1140 ml 1680 ml Output Total 1900 ml 1200 ml Balance -760 ml 480 ml Intake Oral 1140 ml 800 ml IV Total 880 ml Output Urine Total 1900 ml 1200 ml # Bowel Movements 2 Laboratory Tests Test 09/27/20 07:18 White Blood Count 8.4 K/UL (4.8-10.8) Red Blood Count 4.34 M/UL (4.70-6.10) L Hemoglobin 11.1 G/DL (14.2-18.0) L Hematocrit 34.6 % (42.0-52.0) L Mean Corpuscular Volume 80 FL (80-99) Mean Corpuscular Hemoglobin 25.5 PG (27.0-31.0) L Mean Corpuscular Hemoglobin Concent 32.1 G/DL (32.0-36.0) Red Cell Distribution Width 13.8 % (11.6-14.8) Platelet Count 333 K/UL (150-450) Mean Platelet Volume 9.4 FL (6.5-10.1) Neutrophils (%) (Auto) 56.6 % (45.0-75.0) Lymphocytes (%) (Auto) 22.2 % (20.0-45.0) Monocytes (%) (Auto) 8.7 % (1.0-10.0) Eosinophils (%) (Auto) 10.9 % (0.0-3.0) H Basophils (%) (Auto) 1.6 % (0.0-2.0) Sodium Level 140 MMOL/L (136-145) Potassium Level 3.8 MMOL/L (3.5-5.1) Chloride Level 107 MMOL/L (98-107) Carbon Dioxide Level 22 MMOL/L (21-32) Anion Gap 11 mmol/L (5-15) Blood Urea Nitrogen 12 mg/dL (7-18) Creatinine 0.8 MG/DL (0.55-1.30) Estimat Glomerular Filtration Rate > 60 mL/min (>60) Glucose Level 109 MG/DL (74-106) H Calcium Level 8.8 MG/DL (8.5-10.1) Objective HEAD AND NECK: No JVD. LUNGS: Clear. CARDIOVASCULAR: Regular S1 and S2 with no gallop or murmur. ABDOMEN: Soft. EXTREMITIES: No pitting edema. Oliver Plata MD Sep 27, 2020 14:36
[2020-09-27 16:00] VITALS: BP 140/77
--- NOTE | 2020-09-27 17:10 | Diagnostic Imaging Report ---
Indication: Cough Technique: 2 views of the chest Comparison: 09/23/2020 Findings: Lungs and pleural spaces are clear. The heart size is normal. The bones are unremarkable.. There is a hiatal hernia apparent on the lateral view but not on the PA view. No significant interim change. Impression: Acute process Hiatal hernia
--- NOTE | 2020-09-27 19:22 | NUR ---
NURSE HAND-OFF REPORT: Important Events on Shift:cxr (-) Patient Status: stable Diet: cardiac Pending Orders: n/a Pending Results/Labs:n/a Pending MD notification:n/a Latest Vital Signs: Temperature 96.7 , Pulse 68 , B/P 140 /77 , Respiratory Rate 20 , O2 SAT 98 , Room Air, O2 Flow Rate . Vital Sign Comment: stable EKG Rhythm: Sinus Rhythm Rhythm change?: N MD Notified?: - MD Response: Latest Avila Fall Score: 45 Fall Risk: High Risk Safety Measures: Call light Within Reach, Bed Alarm Zone 1, Side Rails Side Rails x2, Bed position Low and Locked. Fall Precautions: Yellow Socks Yellow Gown Door Sign Patient Fall Education Report given to GIFTY Nicolas.
--- NOTE | 2020-09-27 19:30 | NUR ---
NURSE NOTES: Report received from GIFTY Arzola. Patient is awake on bed, alert and oriented x 4. 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 On cardiac diet, instructed and amenable. On room air, saturating 95-97% and no complaints of SOB at this time. IV site is on left forearm g-20 running D5 1/2 NS + 20 meqs KCL @ 75cc/hour that is patent and intact. Safety measures are in place, bed in lowest and locked position, side rails up x 2, call light button and bedside table within reach, instructed to call for any assistance needed, will continue plan of care.
[2020-09-27 20:00] VITALS: BP 140/81
[2020-09-27] MEDS: cefTRIAXone 1 GM in D5W 55 ML IVPB SCH (21:11)
[2020-09-28] VITALS: BP 126/76
[2020-09-28 04:00] VITALS: BP 128/81
[2020-09-28] MEDS: D5 1/2NS w/KCl 20mEq 1,000 ML IV SCH ×2 (05:03→17:36)
--- NOTE | 2020-09-28 07:04 | NUR ---
NURSE HAND-OFF REPORT: Important Events on Shift: Patient has been resting well the whole shift with no episode of SOB nor chest pain. Patient Status: Patient is awake on bed in stable condition. Plan of care endorsed. Diet: Cardiac diet Pending Orders: none Pending Results/Labs:AM lab result Pending MD notification:none Latest Vital Signs: Temperature 98.5 , Pulse 70 , B/P 128 /81 , Respiratory Rate 18 , O2 SAT 96 , Room Air, O2 Flow Rate . Vital Sign Comment: stable EKG Rhythm: Sinus Rhythm Rhythm change?: N MD Notified?: - MD Response: Latest Avila Fall Score: 45 Fall Risk: High Risk Safety Measures: Call light Within Reach, Bed Alarm Zone 1, Side Rails Side Rails x2, Bed position Low and Locked. Fall Precautions: Yellow Socks Yellow Gown Door Sign Patient Fall Education Report given to GIFTY Haile.
[2020-09-28 07:20] LABS: BASOPHILS % (AUTO) 1.8 % (0.0-2.0); EOSINOPHILS % (AUTO) 14.3 % (0.0-3.0); HEMATOCRIT 36.8 % (42.0-52.0); HEMOGLOBIN 11.4 G/DL (14.2-18.0); LYMPHOCYTES % (AUTO) 25.1 % (20.0-45.0); MEAN CORPUSCULAR VOLUME 82 FL (80-99); MONOCYTES % (AUTO) 7.4 % (1.0-10.0); NEUTROPHILS % (AUTO) 51.4 % (45.0-75.0); PLATELET COUNT 331 K/UL (150-450); RED BLOOD COUNT 4.49 M/UL (4.70-6.10); RED CELL DISTRIBUTION WIDTH 14.1 % (11.6-14.8); WHITE BLOOD COUNT 7.1 K/UL (4.8-10.8)
--- NOTE | 2020-09-28 07:45 | NUR ---
NURSE NOTES: Patient received from GIFTY Nicolas. Patient seen sitting at the edge of bed eating breakfast, AAOx4, with no acute signs of distress and no complaints of pain 0/10. The patient has a R FA 20G Iv that is clean patent and intact and running D51/2NS with 20MeqK at 75cc/hr. The patient is on room air with oxygen saturation within normal limits. The patients bed is in lowest position, locked, side rails x2 and call light within reach. Patient instructed to press call light for any further needs.
[2020-09-28 08:00] VITALS: BP 167/83
[2020-09-28 08:02] LABS: ANION GAP 9 mmol/L (5-15); BLOOD UREA NITROGEN 12 mg/dL (7-18); CALCIUM 9.1 MG/DL (8.5-10.1); CARBON DIOXIDE 25 MMOL/L (21-32); CHLORIDE 108 MMOL/L (98-107); CREATININE 0.8 MG/DL (0.55-1.30); SODIUM 142 MMOL/L (136-145)
--- NOTE | 2020-09-28 08:02 | NUR ---
CASE MANAGEMENT:REVIEW 09/28/20 SI: NEAR SYNCOPE. DEHYDRATION. LT HAND CELLULITIS 98.5 72 18 128/81 96% ON RA IS: IV ROCEPHIN Q24 IVF@75/HR NORVASC PO Q12 HEPARIN SQ Q12 : TELEMETRY STATUS DCP: SOCIAL SERVICE CONSULT FOR SUSPECTED HOMELESSNESS PLAN: FRAMEMAN TO CONFIRM DISCHARGE DISPOSITION
[2020-09-28] MEDS: Heparin 5000 units/ml inj SUBQ SCH (08:06)
--- NOTE | 2020-09-28 08:11 | Infectious Diseases Prog Note ---
Assessment/Plan 70yo M with: Afebrile Mild leukocytosis to 11, improved Near syncopal event, weakness Satting well on RA 09/23 COVID PCR neg BCx NTD CXR: No acute process Flu neg L hand swelling, r/o cellulitis 09/23 L hand XR: No acute process BLE US neg for DVT Cr 0.9 HIV screen neg Plan: Cont empiric CTX #6/7 for cellulitis On discharge can transition to cephalexin 500mg PO QID to complete 7 day course for cellulitis (1 more day) 09/26 SP vanco #3 empiric Monitor CBC/CMP Monitor temp curve, hemodynamics Monitor resp status D/w RN Thank you for this consult. [facility] will continue to follow. Subjective Allergies: Coded Allergies: No Known Allergies (Unverified , 09/23/20) AF NAD on RA WBC 7.1 Improving pain/erythema/swelling L wrist Ongoing BLE swelling, sitting up on side of bed Objective Last 24 Hour Vital Signs Date Time Temp Pulse Resp B/P (MAP) Pulse Ox O2 Delivery O2 Flow Rate FiO2 09/28/20 08:07 86 167/83 09/28/20 04:00 72 09/28/20 04:00 98.5 70 18 128/81 (97) 96 09/28/20 00:00 61 09/28/20 00:00 98.3 77 18 126/76 (93) 97 09/27/20 21:12 82 140/81 09/27/20 21:00 Room Air 09/27/20 20:00 91 09/27/20 20:00 98.5 82 18 140/81 (100) 96 09/27/20 16:00 68 09/27/20 16:00 96.7 80 20 140/77 (98) 98 09/27/20 12:00 98.2 60 18 149/80 (103) 96 09/27/20 12:00 79 09/27/20 09:00 Room Air 09/27/20 08:14 67 150/90 Height (Feet): 5 Height (Inches): 1.00 Weight (Pounds): 150 Gen: NAD HEENT: NCAT Pulm: BL chest rise Abd: Non-distended Ext: No c/c. L hard w/ decreased swelling/pain on palpation/rotation. BLE w/ decreased swelling/erythema Neuro: Awake, interactive Laboratory Tests Test 2/16/21 06:35 White Blood Count 7.1 K/UL (4.8-10.8) Red Blood Count 4.49 M/UL (4.70-6.10) L Hemoglobin 11.4 G/DL (14.2-18.0) L Hematocrit 36.8 % (42.0-52.0) L Mean Corpuscular Volume 82 FL (80-99) Mean Corpuscular Hemoglobin 25.3 PG (27.0-31.0) L Mean Corpuscular Hemoglobin Concent 30.8 G/DL (32.0-36.0) L Red Cell Distribution Width 14.1 % (11.6-14.8) Platelet Count 331 K/UL (150-450) Mean Platelet Volume 8.8 FL (6.5-10.1) Neutrophils (%) (Auto) 51.4 % (45.0-75.0) Lymphocytes (%) (Auto) 25.1 % (20.0-45.0) Monocytes (%) (Auto) 7.4 % (1.0-10.0) Eosinophils (%) (Auto) 14.3 % (0.0-3.0) H Basophils (%) (Auto) 1.8 % (0.0-2.0) Sodium Level 142 MMOL/L (136-145) Potassium Level 4.0 MMOL/L (3.5-5.1) Chloride Level 108 MMOL/L (98-107) H Carbon Dioxide Level 25 MMOL/L (21-32) Anion Gap 9 mmol/L (5-15) Blood Urea Nitrogen 12 mg/dL (7-18) Creatinine 0.8 MG/DL (0.55-1.30) Estimat Glomerular Filtration Rate > 60 mL/min (>60) Glucose Level 82 MG/DL (74-106) Calcium Level 9.1 MG/DL (8.5-10.1) Current Medications Medications (Trade) Dose Ordered Sig/Anthony Route PRN Reason Start Time Stop Time Status Last Admin Dose Admin Acetaminophen (Tylenol) 650 mg Q6H PRN ORAL FEVER 09/24/20 05:45 10/24/20 05:44 Acetaminophen (Tylenol) 650 mg Q6H PRN ORAL Mild Pain (Pain Scale 1-3) 09/24/20 05:45 10/24/20 05:44 Acetaminophen/ Hydrocodone Bitart ([place] 5/325) 1 tab Q6H PRN ORAL moderate to severer pain 09/24/20 05:45 10/01/20 05:44 Amlodipine Besylate (Norvasc) 5 mg Q12HR ORAL 09/25/20 21:00 10/25/20 20:59 09/28/20 08:07 Ceftriaxone Sodium 1 gm/ Dextrose 55 ml @ 110 mls/hr Q24H IVPB 09/24/20 22:00 10/01/20 21:59 09/27/20 21:11 Clonidine HCl (Catapres Tab) 0.1 mg Q4H PRN ORAL sbp>170 09/24/20 13:00 12/23/20 12:59 Dextrose/ Electrolytes 1,000 ml @ 75 mls/hr [id number] IV 09/24/20 07:00 10/24/20 06:59 09/28/20 05:03 Guaifenesin/ Dextromethorphan (Robitussin DM Syrup) 5 ml Q6H PRN ORAL For Cough 09/27/20 11:00 12/26/20 10:59 09/27/20 11:45 Heparin Sodium (Porcine) (Heparin 5000 units/ml) 5,000 units EVERY 12 HOURS SUBQ 09/24/20 09:00 11/08/20 08:59 09/28/20 08:06 Ondansetron HCl (Zofran) 4 mg Q4H PRN IVP Nausea & Vomiting 09/24/20 05:45 10/24/20 05:44 Zolpidem Tartrate (Ambien) 5 mg HSPRN PRN ORAL Insomnia 09/24/20 05:45 10/01/20 05:44 Jayda Staton M.D. Sep 28, 2020 08:11
--- NOTE | 2020-09-28 09:46 | Cardiac Electrophysiology PN ---
Assessment/Plan Assessment/Plan 1. Syncopal episodes. Ruled out for myocardial infarction. Echocardiogram showed normal EF with no evidence of pericardial effusion or aortic stenosis. It could be due to dehydration as the patient was hypotensive by the time when paramedics arrived. 2. Hypertension. Initial blood pressure was in the 80s. However, blood pressure was in the 160s. On Norvasc 5 bid and p.r.n. clonidine 3. Shortness of breath. Ruled out for COVID and is on antibiotic for possible pneumonia. On RA 4. Right lower limb cellulitis, on antibiotic Subjective Subjective Off isolation.In SR. Cellulitis of LEs and L hand better BP better on RA Objective Last 24 Hour Vital Signs Date Time Temp Pulse Resp B/P (MAP) Pulse Ox O2 Delivery O2 Flow Rate FiO2 09/28/20 09:00 Room Air 09/28/20 08:07 86 167/83 09/28/20 08:00 98.6 70 20 167/83 (111) 95 09/28/20 08:00 81 09/28/20 04:00 72 09/28/20 04:00 98.5 70 18 128/81 (97) 96 09/28/20 00:00 61 09/28/20 00:00 98.3 77 18 126/76 (93) 97 09/27/20 21:12 82 140/81 09/27/20 21:00 Room Air 09/27/20 20:00 91 09/27/20 20:00 98.5 82 18 140/81 (100) 96 09/27/20 16:00 68 09/27/20 16:00 96.7 80 20 140/77 (98) 98 09/27/20 12:00 98.2 60 18 149/80 (103) 96 09/27/20 12:00 79 Intake and Output 09/27/20 09/28/20 19:00 07:00 Intake Total 1200 ml Output Total 1300 ml Balance -100 ml Intake Oral 1200 ml Output Urine Total 1300 ml # Voids 2 Laboratory Tests Test 09/28/20 06:35 White Blood Count 7.1 K/UL (4.8-10.8) Red Blood Count 4.49 M/UL (4.70-6.10) L Hemoglobin 11.4 G/DL (14.2-18.0) L Hematocrit 36.8 % (42.0-52.0) L Mean Corpuscular Volume 82 FL (80-99) Mean Corpuscular Hemoglobin 25.3 PG (27.0-31.0) L Mean Corpuscular Hemoglobin Concent 30.8 G/DL (32.0-36.0) L Red Cell Distribution Width 14.1 % (11.6-14.8) Platelet Count 331 K/UL (150-450) Mean Platelet Volume 8.8 FL (6.5-10.1) Neutrophils (%) (Auto) 51.4 % (45.0-75.0) Lymphocytes (%) (Auto) 25.1 % (20.0-45.0) Monocytes (%) (Auto) 7.4 % (1.0-10.0) Eosinophils (%) (Auto) 14.3 % (0.0-3.0) H Basophils (%) (Auto) 1.8 % (0.0-2.0) Sodium Level 142 MMOL/L (136-145) Potassium Level 4.0 MMOL/L (3.5-5.1) Chloride Level 108 MMOL/L (98-107) H Carbon Dioxide Level 25 MMOL/L (21-32) Anion Gap 9 mmol/L (5-15) Blood Urea Nitrogen 12 mg/dL (7-18) Creatinine 0.8 MG/DL (0.55-1.30) Estimat Glomerular Filtration Rate > 60 mL/min (>60) Glucose Level 82 MG/DL (74-106) Calcium Level 9.1 MG/DL (8.5-10.1) Objective HEAD AND NECK: No JVD. LUNGS: Clear. CARDIOVASCULAR: Regular S1 and S2 with no gallop or murmur. ABDOMEN: Soft. EXTREMITIES: No pitting edema. Oliver Plata MD Sep 28, 2020 09:46
--- NOTE | 2020-09-28 11:41 | NUR ---
X RAY EQUIPMENT SERVICER NOTE SW spoke w/ pt to clarify his current living arrangement. Pt resides alone at [facility] [address] [address]. Pt has section 8 voucher. Pt requested senior citizen organization and housing agency information. SW provided such resource as per request. Pt reports he is ambulatory w/ a cane and he has been independent w/ADLs. Pt does not have a caregiver/receive IHSS service. Pt reports he does not have family. emergency contact is listed as his friend, Lokesh [phone].
[2020-09-28 11:58] VITALS: BP 148/86
--- NOTE | 2020-09-28 13:32 | NUR ---
INSURANCE CLINICALS/REVIEW FAXED TO [facility]#[phone] fax# [phone]
--- NOTE | 2020-09-28 13:44 | NUR ---
NURSE NOTES: Discharge order placed, awaiting script for cephalexin 500mg PO QID for one more day per ID doctor.Contacted MD for script.
[2020-09-28 16:00] VITALS: BP 124/61
[2020-09-28] MEDS ORDERED: CEPHALEXIN500 MG ORAL (16:40)
[2020-09-28] MEDS ORDERED: NORVASC5 MG ORAL (16:43)
--- NOTE | 2020-09-28 16:53 | Surgery Progress Note ---
Surgery Progress Note Subjective Symptoms: improved, tolerating diet, passing flatus Objective Last 24 Hour Vital Signs Date Time Temp Pulse Resp B/P (MAP) Pulse Ox O2 Delivery O2 Flow Rate FiO2 09/28/20 16:00 98.0 70 20 124/61 (82) 95 09/28/20 12:00 73 09/28/20 11:58 97.6 82 18 148/86 (106) 96 09/28/20 09:00 Room Air 09/28/20 08:07 86 167/83 09/28/20 08:00 98.6 70 20 167/83 (111) 95 09/28/20 08:00 81 09/28/20 04:00 72 09/28/20 04:00 98.5 70 18 128/81 (97) 96 09/28/20 00:00 61 09/28/20 00:00 98.3 77 18 126/76 (93) 97 09/27/20 21:12 82 140/81 09/27/20 21:00 Room Air 09/27/20 20:00 91 09/27/20 20:00 98.5 82 18 140/81 (100) 96 I&O Intake and Output 09/27/20 09/28/20 19:00 07:00 Intake Total 1200 ml 75 ml Output Total 1300 ml Balance -100 ml 75 ml Intake Oral 1200 ml IV Total 75 ml Output Urine Total 1300 ml # Voids 2 Dressing: dry Wound: clean Cardiovascular: RSR Respiratory: clear, decreased breath sounds Abdomen: soft, non-tender, present bowel sounds, non-distended Extremities: no edema, no tenderness, no cyanosis Laboratory Tests Test 09/28/20 06:35 White Blood Count 7.1 K/UL (4.8-10.8) Red Blood Count 4.49 M/UL (4.70-6.10) L Hemoglobin 11.4 G/DL (14.2-18.0) L Hematocrit 36.8 % (42.0-52.0) L Mean Corpuscular Volume 82 FL (80-99) Mean Corpuscular Hemoglobin 25.3 PG (27.0-31.0) L Mean Corpuscular Hemoglobin Concent 30.8 G/DL (32.0-36.0) L Red Cell Distribution Width 14.1 % (11.6-14.8) Platelet Count 331 K/UL (150-450) Mean Platelet Volume 8.8 FL (6.5-10.1) Neutrophils (%) (Auto) 51.4 % (45.0-75.0) Lymphocytes (%) (Auto) 25.1 % (20.0-45.0) Monocytes (%) (Auto) 7.4 % (1.0-10.0) Eosinophils (%) (Auto) 14.3 % (0.0-3.0) H Basophils (%) (Auto) 1.8 % (0.0-2.0) Sodium Level 142 MMOL/L (136-145) Potassium Level 4.0 MMOL/L (3.5-5.1) Chloride Level 108 MMOL/L (98-107) H Carbon Dioxide Level 25 MMOL/L (21-32) Anion Gap 9 mmol/L (5-15) Blood Urea Nitrogen 12 mg/dL (7-18) Creatinine 0.8 MG/DL (0.55-1.30) Estimat Glomerular Filtration Rate > 60 mL/min (>60) Glucose Level 82 MG/DL (74-106) Calcium Level 9.1 MG/DL (8.5-10.1) Plan Problems: (1) Generalized weakness (2) Dehydration (3) Cellulitis Assessment & Plan: 70-year-old male with right lower extremity cellulitis. Multiple scabs identified. Patient denies trauma states he does occasionally have itching from the edema and scratches in the recent is formed erythema and cellulitis. No nausea vomiting fever chills. Labs noted. Keep right leg elevated IV antibiotics no abscess identified no acute surgical intervention planned or necessary at this time. Will monitor to ensure resolution of cellulitis. Local wound care. Diet as tolerated we will follow with recommendations thank you for let allowing me to participate in patient's care Bilaterally, grayscale and duplex images demonstrate no evidence of intraluminal thrombus. Normal phasic Doppler waveforms, demonstrating normal augmentation response and no evidence of valvular insufficiency. Greater saphenous vein(s) and tibial veins are patent. Normal compressibility. Impression: Negative for evidence of lower extremity deep venous thrombosis bilaterally (4) Near syncope TeriCarlton Sep 28, 2020 16:53
--- NOTE | 2020-09-28 18:20 | Internal Med Progress Note ---
Subjective Date of Service: Sep 28, 2020 Physician Name Kishor Turner Attending Physician Devin Ocoha MD Current Medications Medications (Trade) Dose Ordered Sig/Anthony Route PRN Reason Start Time Stop Time Status Last Admin Dose Admin Acetaminophen (Tylenol) 650 mg Q6H PRN ORAL FEVER 09/24/20 05:45 10/24/20 05:44 Acetaminophen (Tylenol) 650 mg Q6H PRN ORAL Mild Pain (Pain Scale 1-3) 09/24/20 05:45 10/24/20 05:44 Acetaminophen/ Hydrocodone Bitart ([place] 5/325) 1 tab Q6H PRN ORAL moderate to severer pain 09/24/20 05:45 10/01/20 05:44 Amlodipine Besylate (Norvasc) 5 mg Q12HR ORAL 09/25/20 21:00 10/25/20 20:59 09/28/20 08:07 Ceftriaxone Sodium 1 gm/ Dextrose 55 ml @ 110 mls/hr Q24H IVPB 09/24/20 22:00 10/01/20 21:59 09/27/20 21:11 Clonidine HCl (Catapres Tab) 0.1 mg Q4H PRN ORAL sbp>170 09/24/20 13:00 12/23/20 12:59 Dextrose/ Electrolytes 1,000 ml @ 75 mls/hr [id number] IV 09/24/20 07:00 10/24/20 06:59 09/28/20 17:36 Guaifenesin/ Dextromethorphan (Robitussin DM Syrup) 5 ml Q6H PRN ORAL For Cough 09/27/20 11:00 12/26/20 10:59 09/27/20 11:45 Heparin Sodium (Porcine) (Heparin 5000 units/ml) 5,000 units EVERY 12 HOURS SUBQ 09/24/20 09:00 11/08/20 08:59 09/28/20 08:06 Ondansetron HCl (Zofran) 4 mg Q4H PRN IVP Nausea & Vomiting 09/24/20 05:45 10/24/20 05:44 Zolpidem Tartrate (Ambien) 5 mg HSPRN PRN ORAL Insomnia 09/24/20 05:45 10/01/20 05:44 Allergies: Coded Allergies: No Known Allergies (Unverified , 09/23/20) ROS Limited/Unobtainable: No Constitutional: Reports: no symptoms HEENT: Reports: no symptoms Cardiovascular: Reports: no symptoms Respiratory: Reports: no symptoms Gastrointestinal/Abdominal: Reports: no symptoms Genitourinary: Reports: no symptoms Neurologic/Psychiatric: Reports: no symptoms Subjective 70 YO M admitted with near syncope and dehydration. Now cellulitis left hand. Cover for Int Parvez-Dr Ochoa Objective Last Vital Signs Date Time Temp Pulse Resp B/P (MAP) Pulse Ox O2 Delivery O2 Flow Rate FiO2 09/28/20 16:00 87 09/28/20 16:00 98.0 20 124/61 (82) 95 09/28/20 09:00 Room Air Laboratory Tests Test 09/28/20 06:35 White Blood Count 7.1 K/UL (4.8-10.8) Red Blood Count 4.49 M/UL (4.70-6.10) L Hemoglobin 11.4 G/DL (14.2-18.0) L Hematocrit 36.8 % (42.0-52.0) L Mean Corpuscular Volume 82 FL (80-99) Mean Corpuscular Hemoglobin 25.3 PG (27.0-31.0) L Mean Corpuscular Hemoglobin Concent 30.8 G/DL (32.0-36.0) L Red Cell Distribution Width 14.1 % (11.6-14.8) Platelet Count 331 K/UL (150-450) Mean Platelet Volume 8.8 FL (6.5-10.1) Neutrophils (%) (Auto) 51.4 % (45.0-75.0) Lymphocytes (%) (Auto) 25.1 % (20.0-45.0) Monocytes (%) (Auto) 7.4 % (1.0-10.0) Eosinophils (%) (Auto) 14.3 % (0.0-3.0) H Basophils (%) (Auto) 1.8 % (0.0-2.0) Sodium Level 142 MMOL/L (136-145) Potassium Level 4.0 MMOL/L (3.5-5.1) Chloride Level 108 MMOL/L (98-107) H Carbon Dioxide Level 25 MMOL/L (21-32) Anion Gap 9 mmol/L (5-15) Blood Urea Nitrogen 12 mg/dL (7-18) Creatinine 0.8 MG/DL (0.55-1.30) Estimat Glomerular Filtration Rate > 60 mL/min (>60) Glucose Level 82 MG/DL (74-106) Calcium Level 9.1 MG/DL (8.5-10.1) Intake and Output 09/27/20 09/28/20 19:00 07:00 Intake Total 1200 ml 75 ml Output Total 1300 ml Balance -100 ml 75 ml Intake Oral 1200 ml IV Total 75 ml Output Urine Total 1300 ml # Voids 2 Objective PHYSICAL EXAMINATION: GENERAL: The patient awake, responsive, no acute distress. HEAD AND NECK: Pupils are equal and reactive to light. Extraocular muscles intact. Neck was supple. No JVD. LUNGS: Good air entry with no wheezing or rales. HEART: S1, S2. Regular rate and rhythm. No murmur or gallop. ABDOMEN: Soft, nondistended, nontender. Positive bowel sounds. EXTREMITIES: No cyanosis, clubbing. Cellulitis, bilateral lower extremity, +2 edema bilateral lower extremity. Some skin tear was noted on lower extremity and warm to touch, left greater than right. The erythema on the lower extremity is up to the mid tibia fibula area and ankle area. NEUROLOGIC: Cranial nerves II through XII are grossly intact. The patient is moving all the extremities. RECTAL: Refused and deferred. GENITOURINARY: Refused and deferred. PSYCHIATRIC: Mood and affect is anxious. Assessment/Plan Assessment/Plan ASSESSMENT: 1. Near syncope, most likely secondary to the hypovolemia with orthostatic hypotension. 2. Cellulitis of left hand. 3. Failure to thrive. PLAN: 1. Admit the patient to monitored unit. 2. antibiotic = ceftriaxone D# 5/7; S/P vancomycin. 3. DVT prophylaxis, heparin subcutaneous. 4. Code status is full code. 5. Dr Jayda Staton = ID consultation 6. Dr. Oliver Plata = cardiology 7. Dr. Carlton Williamson = wound care management. Kishor Turner MD Sep 28, 2020 18:20
--- NOTE | 2020-09-28 18:45 | NUR ---
NURSE NOTES: Patient discharged to own apartment via taxi that was paid for by taxi voucher provided by the hospital. The patient is AAOx4 with no complaints of any pain 0/10. the patients IV was discontinued and was clean and intact with no bleeding noted. The patients cardiac monitor technician was disconnected. the patient was given patient instructions on medications to take at home, self care at home, diagnosis with signs and symptoms and all questions were answered at this time. the patients belongings list was verified, acknowledged and signed. The patient dressed own self with own clothes and ambulated with RN to taxi with belongings and was off the floor at 1845.
--- NOTE | 2020-10-01 16:57 | Discharge Summary ---
Discharge Summary Discharge Summary _ Date of admission: 09/23/2020 Date of discharge: 09/28/[address] Ochoa History of Present Illness and Brief Hospital Course Mr. Walker is a 70-year-old male with no reported medical history who presented to the ED for evaluation of generalized weakness and near syncopal episode. Associated symptoms included chills and decreased appetite. Patient had been laying in bed for a few days before going to a supermarket to get something to eat. Patient was standing in line when he felt lightheaded and almost fell. The bystander laid him down to the ground and 911 was called. The paramedics found his initial systolic blood pressure to be in the 80s while sitting up and in the 130s while laying down. Patient did have chronic edema to his lower extremities. Patient's chest x-ray showed no acute pulmonary disease. Patient was admitted to the hospital for further management. Patient tested negative for COVID-19 via PCR. Given his syncopal episodes, patient was evaluated by a high rigger. His echocardiogram showed normal left ventricular systolic function with no evidence of pericardial effusion or aortic stenosis. The syncope was likely due to dehydration and hypovolemia. His blood pressure improved during hospitalization and patient was started on Norvasc for hypertension. Patient presented with right lower extremity cellulitis with multiple scabs. No acute surgical intervention was indicated at at the time. His right leg was elevated. Venous duplex ultrasound of lower extremities was negative for DVT. Patient was started on antibiotics for cellulitis. His left hand was swollen but his left hand x-ray showed no acute process. Patient was medically stable for discharge and was discharged on 09/28/2020 on oral cephalexin. Consultants: Infectious disease Dr. Staton Cardiology Dr. Plata Surgery Dr. Williamson Discharge Condition Improved and stable Final diagnoses Syncopal episodes Hypovolemia/dehydration Hypertension Right lower limb cellulitis Mild leukocytosis I have been assigned to dictate discharge summary for this account. I was not involved in the patient's management Iván Dang Oct 01, 2020 16:57
== END 2020-09-28 18:47 | disposition home or self-care (01) | DRG 312 ==
LOC: EDBD 21:42 → EMR 22:00 → 2E 23:59 → EDBEDREQ 09-24 00:20
DX: I95.1 Orthostatic hypotension (principal); L03.115 Cellulitis of right lower limb; E86.1 Hypovolemia; E86.0 Dehydration; R62.7 Adult failure to thrive; I10 Essential (primary) hypertension
CPT/HCPCS: 36415; 71045; 71046; 80048; 80053; 81003; 82550; 82553; 83605; 83735; 83880; 84100; 84439; 84443; 84484; 85025; 85379; 85610; 85730; 86140; 86703; 86710; 87040; 93005; 93306; 93970; 96361; 96365; 99285; J7030